=== PATIENT | female | born 1990 | race African-American/Black ===

== ENCOUNTER 2016-11-02 13:52 | Emergency (ER) | payer MEDICAID ==
[~2016-11-02] VITALS: Ht 172.7 cm; Wt 141.4 kg
[~2016-11-02 13:52] MED LIST: BECL8.7A5 IH; LISI-660 PO; LORA10TA7 PO; MOME17N NASAL; OLAN10TA3 PO; OMEP20 PO; OXCA300T PO; TIOT185 IH; TRAZ150 PO
[2016-11-02] MEDS ORDERED: LITH300C3 PO (14:02)
[2016-11-02] MEDS ORDERED: TOPI100 PO (14:02)
[2016-11-02] MEDS ORDERED: ESOM20CA31 PO (14:02)
[2016-11-02] MEDS ORDERED: DIPH25 PO (14:02)
[2016-11-02 14:12] LABS: GLUCOSE,POINT OF CARE 87 MG/DL (70-110)
[2016-11-02] MEDS ORDERED: CefTRIAXone SODIUM 1 GM/VIAL IM ONE (14:45)
[2016-11-02] MEDS ORDERED: LIDOCAINE HCL/PF 1% 2 ML VIAL IM ONE (14:45)
[2016-11-02] MEDS ORDERED: HYDROCODONE/ACETAMINOPHEN 5-325 MG TABLET PO ONE (14:45)
[2016-11-02] MEDS ORDERED: BACITRACIN 0.9 GM PACKET OINTMENT TP ONE (15:00)
[2016-11-02] MEDS ORDERED: POVIDONE-IODINE 10% 15 ML SOLUTION UD TP ONE (15:00)
[2016-11-02 15:23] VITALS: BP 137/82
== END 2016-11-02 16:09 | disposition home or self-care (01) ==
LOC: EMS 13:53
DX: L02.411 Cutaneous abscess of right axilla (principal); L03.111 Cellulitis of right axilla; J06.9 Acute upper respiratory infection, unspecified; J45.909 Unspecified asthma, uncomplicated; Z87.891 Personal history of nicotine dependence
CPT/HCPCS: 36415; 82962; 84484; 93005; 96372; 99285; J0696; J3490

== ENCOUNTER 2016-12-30 08:15 | Emergency (ER) | payer MEDICAID ==
[~2016-12-30] VITALS: Ht 160 cm; Wt 139.0 kg
[~2016-12-30 08:15] MED LIST changes: +DIPH25 PO; +ESOM20CA31 PO; +LITH300C3 PO; +TOPI100 PO
[2016-12-30 08:32] LABS: GLUCOSE,POINT OF CARE 112 MG/DL (70-110)
[2016-12-30] MEDS ORDERED: METF500T4 PO (08:33)
[2016-12-30 09:23] LABS: GLUCOSE, URINE (UA) NEGATIVE (NEGATIVE); KETONES,URINE NEGATIVE (NEGATIVE); LEUKOCYTE ESTERASE ,URINE LARGE (NEGATIVE); OCCULT BLOOD,URINE NEGATIVE (NEGATIVE); PROTEIN,URINE NEGATIVE (NEGATIVE)
[2016-12-30 09:36] LABS: APPEARANCE,URINE HAZY (CLEAR)
[2016-12-30 10:05] LABS: SQUAMOUS EPITHELIAL CELL,UR Few /LPF (None Seen)
[2016-12-30 10:53] VITALS: BP 132/68
== END 2016-12-30 10:55 | disposition home or self-care (01) ==
LOC: EMS 08:16
DX: N39.0 Urinary tract infection, site not specified (principal); B37.3 Candidiasis of vulva and vagina; Z87.891 Personal history of nicotine dependence; F32.9 Major depressive disorder, single episode, unspecified; J45.909 Unspecified asthma, uncomplicated; Z79.899 Other long term (current) drug therapy
CPT/HCPCS: 82962; 87086; 99284

== ENCOUNTER 2017-07-09 13:03 | Emergency (ER) | payer MEDICAID, OTHER ==
[~2017-07-09] VITALS: Ht 162.6 cm; Wt 135.9 kg
[~2017-07-09 13:03] MED LIST changes: +METF500T4 PO; -TOPI100 PO; +TOPI100T37 PO
[2017-07-09] MEDS ORDERED: BENZ-51 PO (13:24)
[2017-07-09] MEDS ORDERED: NORG1TAB53 PO (13:24)
[2017-07-09] MEDS ORDERED: ALBU8.5H8 IH (13:24)
[2017-07-09] MEDS ORDERED: IBUP-2070 PO (13:24)
[2017-07-09] MEDS ORDERED: OXCA300T PO (13:24)
[2017-07-09] MEDS ORDERED: BACL10TA PO (13:24)
[2017-07-09] MEDS ORDERED: OLAN10TA3 PO (13:24)
[2017-07-09] MEDS ORDERED: DICL75TA5 PO (13:24)
[2017-07-09 13:27] LABS: GLUCOSE,POINT OF CARE 84 MG/DL (70-110)
[2017-07-09] MEDS ORDERED: DOXYCYCLINE 100 MG CAPSULE PO ONE (15:00)
[2017-07-09 16:43] VITALS: BP 128/83
== END 2017-07-09 17:33 | disposition home or self-care (01) ==
LOC: EMS 13:06
DX: L73.2 Hidradenitis suppurativa (principal); F31.9 Bipolar disorder, unspecified; J45.909 Unspecified asthma, uncomplicated; F17.210 Nicotine dependence, cigarettes, uncomplicated
CPT/HCPCS: 82962; 99284

== ENCOUNTER 2018-01-12 17:15 | Emergency (ER) | payer OTHER ==
[~2018-01-12] VITALS: Ht 162.6 cm; Wt 130.0 kg
[~2018-01-12 17:15] MED LIST changes: +ALBU8.5H8 IH; +BACL10TA PO; +BENZ-51 PO; +DICL75TA5 PO; -ESOM20CA31 PO; +IBUP-2070 PO; +NORG1TAB53 PO
[2018-01-12 17:32] LABS: GLUCOSE,POINT OF CARE 93 MG/DL (70-110)
[2018-01-12 18:09] LABS: APPEARANCE,URINE CLOUDY (CLEAR); GLUCOSE, URINE (UA) NEGATIVE (NEGATIVE); KETONES,URINE NEGATIVE (NEGATIVE); LEUKOCYTE ESTERASE ,URINE NEGATIVE (NEGATIVE); NITRATE,URINE NEGATIVE (NEGATIVE); OCCULT BLOOD,URINE NEGATIVE (NEGATIVE); PH,URINE 5.5 (5.0-8.0); PROTEIN,URINE NEGATIVE (NEGATIVE); UROBILINOGEN,URINE 0.2 mg/dL (<=1.0)
[2018-01-12 18:13] LABS: BILIRUBIN,URINE PRELIM. POSITIVE (NEGATIVE)
[2018-01-12 18:18] LABS: BACTERIA,URINE Rare /HPF (None Seen); MUCUS,URINE Moderate LPF (None Seen); RBC,URINE None Seen /HPF (0-2); SQUAMOUS EPITHELIAL CELL,UR Many /LPF (None Seen)
[2018-01-12 18:31] LABS: ANION GAP 12 mmol/L (8-16); CARBON DIOXIDE 21 mmol/L (22-29); CHLORIDE 101 mmol/L (98-107); CREATININE 0.83 mg/dL (0.60-1.30); GLUCOSE,RANDOM 128 mg/dL (70-110); POTASSIUM 3.6 mmol/L (3.5-5.1); SODIUM SERUM 134 mmol/L (136-145); UREA NITROGEN, BLOOD 8 mg/dL (7-18)
[2018-01-12 18:32] LABS: CALCIUM, TOTAL 9.1 mg/dL (8.8-10.5); GLOMERULAR FILTR. RATE CALC > 60 mL/min (>60)
[2018-01-12 18:38] LABS: ALANINE AMINOTRANSFERASE 33 U/L (12-78); ALBUMIN 3.4 g/dL (3.4-5.0); ALKALINE PHOSPHATASE 40 U/L (46-116); ASPARTATE AMINOTRANSFERASE 37 U/L (15-37); BILIRUBIN,TOTAL 0.3 mg/dL (0.1-1.0); LIPASE 60 U/L (73-393); TOTAL PROTEIN, SERUM 7.6 g/dL (6.4-8.2)
[2018-01-12] MEDS ORDERED: PB/HYOSCY/ATR/SCOP/LIDO/MAALOX 55 ML BOTTLE PO ONE (19:30)
[2018-01-12 19:43] LABS: BASOPHILS % (AUTO) 0.1 % (0.0-2.0); EOSINOPHILS % (AUTO) 0 % (1.0-6.0); HEMATOCRIT 39.2 % (36-46); HEMOGLOBIN 12.8 g/dL (12.0-16.0); LYMPHOCYTES # (AUTO) 0.8 K/uL (1.0-4.8); LYMPHOCYTES % (AUTO) 11.5 % (22.0-44.0); MEAN CORPUSCULAR HEMOGLOBIN 25.6 pg (26.0-34.0); MEAN CORPUSCULAR HGB CONC 32.5 G/dL (31.0-37.0); MEAN CORPUSCULAR VOLUME 79 fL (80-100); MONOCYTES # (AUTO) 0.4 K/uL (0.1-1.0); MONOCYTES % (AUTO) 5.2 % (2.0-9.0); NEUTROPHILS # (AUTO) 5.6 K/uL (1.8-7.7); NEUTROPHILS % (AUTO) 83.2 % (40.0-70.0); PLATELET COUNT (AUTO) 243 K/uL (150-450); RED BLOOD CELL COUNT(AUTO) 4.98 MIL/uL (4.00-5.20); RED CELL DISTRIBUTION WIDTH 14.9 % (11.5-14.5)
[2018-01-12] MEDS ORDERED: KETOROLAC TROMETHAMINE 60 MG/2 ML VIAL IM ONE (20:30)
[2018-01-12 22:36] VITALS: BP 123/69
== END 2018-01-12 22:53 | disposition home or self-care (01) ==
LOC: EMS 17:16
DX: R10.13 Epigastric pain (principal); R11.0 Nausea; F17.210 Nicotine dependence, cigarettes, uncomplicated; J45.909 Unspecified asthma, uncomplicated; F31.9 Bipolar disorder, unspecified; Z71.6 Tobacco abuse counseling
CPT/HCPCS: 36415; 74022; 80053; 80178; 81001; 82962; 83690; 84703; 85025; 96372; 99285; 99406; J1885; Z7610

== ENCOUNTER 2018-03-03 07:14 | Emergency (ER) | payer OTHER ==
[~2018-03-03] VITALS: Ht 162.6 cm; Wt 127.0 kg
[~2018-03-03 07:14] MED LIST changes: -METF500T4 PO; +METF500T6 PO
[2018-03-03 07:28] LABS: GLUCOSE,POINT OF CARE 111 MG/DL (70-110)
[2018-03-03 08:47] VITALS: BP 134/88
== END 2018-03-03 08:55 | disposition home or self-care (01) ==
LOC: EMS 07:16
DX: N91.2 Amenorrhea, unspecified (principal); F17.210 Nicotine dependence, cigarettes, uncomplicated; F31.9 Bipolar disorder, unspecified; J45.909 Unspecified asthma, uncomplicated; Z79.899 Other long term (current) drug therapy
CPT/HCPCS: 99283; 99406

== ENCOUNTER 2018-03-08 08:50 | Inpatient (IN) | payer MEDICAID, OTHER ==
[~2018-03-08] VITALS: Ht 162.6 cm; Wt 129.0 kg
[~2018-03-08 08:50] MED LIST changes: -BACL10TA PO; -BECL8.7A5 IH; -BENZ-51 PO; -DICL75TA5 PO; -DIPH25 PO; -IBUP-2070 PO; -LISI-660 PO; -LITH300C3 PO; -LORA10TA7 PO; -MOME17N NASAL; -NORG1TAB53 PO; -OLAN10TA3 PO; -OMEP20 PO; -OXCA300T PO; -TIOT185 IH; -TOPI100T37 PO; -TRAZ150 PO
[2018-03-08 10:17] LABS: EOSINOPHILS % (AUTO) 0 % (1.0-6.0); MEAN CORPUSCULAR HGB CONC 32.3 G/dL (31.0-37.0); MONOCYTES # (AUTO) 0.3 K/uL (0.1-1.0); NEUTROPHILS # (AUTO) 2.6 K/uL (1.8-7.7)
[2018-03-08 10:26] LABS: BASOPHILS % (AUTO) 0.3 % (0.0-2.0); HEMATOCRIT 39.3 % (36-46); HEMOGLOBIN 12.7 g/dL (12.0-16.0); LYMPHOCYTES # (AUTO) 2.7 K/uL (1.0-4.8); LYMPHOCYTES % (AUTO) 47.8 % (22.0-44.0); MEAN CORPUSCULAR HEMOGLOBIN 25.7 pg (26.0-34.0); MEAN CORPUSCULAR VOLUME 80 fL (80-100); MONOCYTES % (AUTO) 5.3 % (2.0-9.0); NEUTROPHILS % (AUTO) 46.6 % (40.0-70.0); PLATELET COUNT (AUTO) 310 K/uL (150-450); RED BLOOD CELL COUNT(AUTO) 4.94 MIL/uL (4.00-5.20); RED CELL DISTRIBUTION WIDTH 15.1 % (11.5-14.5)
[2018-03-08 10:27] LABS: AMPHET/METH SCREEN,URINE NEGATIVE (NEGATIVE); BARBITURATE SCREEN, URINE NEGATIVE (NEGATIVE); BENZODIAZEPINES SCREEN,URINE NEGATIVE (NEGATIVE); CANNABINOID SCREEN,URINE POSITIVE (NEGATIVE); COCAINE SCREEN,URINE NEGATIVE (NEGATIVE); METHADONE SCREEN, URINE NEGATIVE (NEGATIVE); OPIATE SCREEN,URINE NEGATIVE (NEGATIVE)
[2018-03-08 10:28] LABS: PHENCYCLIDINE SCREEN,URINE NEGATIVE (NEGATIVE)
[2018-03-08 10:32] LABS: ANION GAP 10 mmol/L (8-16); CALCIUM, TOTAL 8.6 mg/dL (8.8-10.5); CARBON DIOXIDE 20 mmol/L (22-29); CHLORIDE 105 mmol/L (98-107); CREATININE 0.72 mg/dL (0.60-1.30); GLOMERULAR FILTR. RATE CALC > 60 mL/min (>60); GLUCOSE,RANDOM 105 mg/dL (70-110); POTASSIUM 3.6 mmol/L (3.5-5.1); SODIUM SERUM 135 mmol/L (136-145); UREA NITROGEN, BLOOD 7 mg/dL (7-18)
[2018-03-08 10:41] LABS: ALANINE AMINOTRANSFERASE 47 U/L (12-78); ALBUMIN 3.4 g/dL (3.4-5.0); ALKALINE PHOSPHATASE 47 U/L (46-116); ASPARTATE AMINOTRANSFERASE 34 U/L (15-37); BILIRUBIN,TOTAL 0.3 mg/dL (0.1-1.0); TOTAL PROTEIN, SERUM 7.3 g/dL (6.4-8.2)
[2018-03-08] MEDS ORDERED: TUBERCULIN, PURIFIED PROTEIN DERIVATIVE 5 TU/0.1 ML SYG ID ONE ×2 (11:15→19:45)
[2018-03-08] MEDS ORDERED: PROMETHAZINE HCL 25 MG TABLET PO PRN (11:15)
[2018-03-08] MEDS ORDERED: ZOLPIDEM TARTRATE 10 MG TABLET PO PRN (11:15)
[2018-03-08] MEDS ORDERED: ACETAMINOPHEN 325 MG TABLET PO PRN (11:15)
[2018-03-08] MEDS ORDERED: MAGNESIUM HYDROXIDE SUSPENSION 30 ML UDCUP PO PRN (11:15)
[2018-03-08] MEDS ORDERED: GuaiFENesin/D-METHORPHAN [SUGAR-FREE] 200-20MG/10 ML SYRUP UDCUP PO PRN (11:15)
[2018-03-08] MEDS ORDERED: OLANZapine 5 MG RAPDIS TABLET PO PRN (11:15)
[2018-03-08] MEDS ORDERED: MAG HYDROX/AL HYDROX/SIMETH ES 30 ML SUSPENSION UDCUP PO PRN (11:15)
[2018-03-08] MEDS ORDERED: HydrOXYzine PAMOATE 50 MG CAPSULE PO PRN (11:15)
[2018-03-08] MEDS ORDERED: LOPERAMIDE HCL 2 MG CAPSULE PO PRN (11:15)
[2018-03-08] MEDS ORDERED: IBUPROFEN 800 MG TABLET PO ONE (11:30)
[2018-03-08] MEDS ORDERED: MUPIROCIN CALCIUM 2% 15 GM CREAM TP ONE (11:30)
[2018-03-08 13:06] LABS: HCG,QUANTITATIVE < 1 mIU/mL (0-6)
[2018-03-08 15:05] LABS: GLUCOSE,POINT OF CARE 126 MG/DL (70-110)
[2018-03-08] MEDS ORDERED: INSULIN LISPRO 100 UNITS/ML SQ PRN (15:45)
[2018-03-08] MEDS ORDERED: DEXTROSE 50%-WATER 25 GM/50 ML SYRINGE IVP PRN (15:45)
[2018-03-08] MEDS: LORazepam 2 MG TABLET PO PRN (16:44)
[2018-03-08] MEDS: THIAMINE HCL 100 MG TABLET PO SCH (18:12)
[2018-03-08] MEDS: MetFORMIN HCL 500 MG TABLET PO SCH (18:12)
[2018-03-08 19:17] VITALS: BP 141/92
[2018-03-08 19:29] LABS: GLUCOMETER DEV NAME(LOC) BV3S 2; GLUCOSE,POINT OF CARE 115 MG/DL (70-110)
[2018-03-08] MEDS ORDERED: LITHIUM CARBONATE 600 MG CAPSULE PO SCH (21:00)
[2018-03-08] MEDS ORDERED: DIVALPROEX SODIUM 500 MG ER TABLET PO SCH (21:00)
[2018-03-08] MEDS ORDERED: TraZODone HCL 50 MG TABLET PO SCH (21:00)
[2018-03-08] MEDS ORDERED: OLANZapine 5 MG RAPDIS TABLET PO SCH (21:00)
[2018-03-08 21:25] LABS: GLUCOMETER DEV NAME(LOC) BV3S 2; GLUCOSE,POINT OF CARE 121 MG/DL (70-110)
[2018-03-08] MEDS: NICOTINE 7 MG/24 HOUR PATCH TD SCH (22:18)
[2018-03-09] MEDS ORDERED: INSULIN LISPRO 100 UNITS/ML SQ PRN (05:00)
[2018-03-09] MEDS ORDERED: GLUCAGON,HUMAN RECOMBINANT 1 MG VIAL IM PRN (05:00)
[2018-03-09] MEDS: MetFORMIN HCL 500 MG TABLET PO SCH ×2 (06:42→17:05)
[2018-03-09 07:14] LABS: GLUCOMETER DEV NAME(LOC) BV3S 2; GLUCOSE,POINT OF CARE 96 MG/DL (70-110)
[2018-03-09 07:15] VITALS: BP 140/90
[2018-03-09 08:34] LABS: BASOPHILS % (AUTO) 0.2 % (0.0-2.0); EOSINOPHILS % (AUTO) 0 % (1.0-6.0); HEMATOCRIT 40.9 % (36-46); HEMOGLOBIN 13.3 g/dL (12.0-16.0); LYMPHOCYTES # (AUTO) 3.4 K/uL (1.0-4.8); LYMPHOCYTES % (AUTO) 51.1 % (22.0-44.0); MEAN CORPUSCULAR HEMOGLOBIN 25.9 pg (26.0-34.0); MEAN CORPUSCULAR HGB CONC 32.4 G/dL (31.0-37.0); MEAN CORPUSCULAR VOLUME 80 fL (80-100); MONOCYTES # (AUTO) 0.4 K/uL (0.1-1.0); MONOCYTES % (AUTO) 5.4 % (2.0-9.0); NEUTROPHILS # (AUTO) 2.8 K/uL (1.8-7.7); NEUTROPHILS % (AUTO) 43.3 % (40.0-70.0); PLATELET COUNT (AUTO) 288 K/uL (150-450); RED BLOOD CELL COUNT(AUTO) 5.11 MIL/uL (4.00-5.20); RED CELL DISTRIBUTION WIDTH 14.9 % (11.5-14.5)
[2018-03-09 08:38] LABS: HEMOGLOBIN A1C 5.9 % (4.5-6.2)
[2018-03-09] MEDS: FOLIC ACID 1 MG TABLET PO SCH (08:55)
[2018-03-09] MEDS: NICOTINE 7 MG/24 HOUR PATCH TD SCH (08:55)
[2018-03-09] MEDS: MULTIVITAMINS WITH MINERALS, THERAPEUTIC TABLET PO SCH (08:55)
[2018-03-09] MEDS: THIAMINE HCL 100 MG TABLET PO SCH ×2 (08:55→17:05)
[2018-03-09 08:59] LABS: LITHIUM 0.81 mmol/L (0.60-1.20)
[2018-03-09] MEDS ORDERED: FLUoxetine HCL 20 MG CAPSULE PO SCH (09:00)
[2018-03-09 09:01] LABS: ALANINE AMINOTRANSFERASE 41 U/L (12-78); ALBUMIN 3.3 g/dL (3.4-5.0); ALKALINE PHOSPHATASE 45 U/L (46-116); ANION GAP 10 mmol/L (8-16); ASPARTATE AMINOTRANSFERASE 25 U/L (15-37); BILIRUBIN,TOTAL 0.3 mg/dL (0.1-1.0); CARBON DIOXIDE 23 mmol/L (22-29); CHLORIDE 107 mmol/L (98-107); CHOL/HDL RATIO 2.3 (3.9-5.7); CHOLESTEROL 138 mg/dL (131-200); CREATININE 0.79 mg/dL (0.60-1.30); FREE T4 (FREE THYROXINE) 0.85 ng/dL (0.76-1.46); GLOMERULAR FILTR. RATE CALC > 60 mL/min (>60); GLUCOSE,RANDOM 91 mg/dL (70-110); HDL CHOLESTEROL 61 mg/dL (40-60); LDL CHOL (CALC.) 58 mg/dL (0-130); POTASSIUM 3.8 mmol/L (3.5-5.1); SODIUM SERUM 140 mmol/L (136-145); THYROID STIMULATING HORMONE 1.23 uIU/mL (0.36-3.74); TOTAL PROTEIN, SERUM 7.5 g/dL (6.4-8.2); TRIGLYCERIDES 93 mg/dL (15-150); UREA NITROGEN, BLOOD 6 mg/dL (7-18)
[2018-03-09 09:13] VITALS: BP 146/93
[2018-03-09 12:13] LABS: GLUCOMETER DEV NAME(LOC) BV3S 2; GLUCOSE,POINT OF CARE 112 MG/DL (70-110)
[2018-03-09] MEDS ORDERED: TUBERCULIN, PURIFIED PROTEIN DERIVATIVE 5 TU/0.1 ML SYG ID ONE (14:45)
[2018-03-09 16:37] VITALS: BP 125/74
[2018-03-09 16:54] LABS: GLUCOMETER DEV NAME(LOC) BV3S 2; GLUCOSE,POINT OF CARE 86 MG/DL (70-110)
[2018-03-09] MEDS: CEPHALEXIN MONOHYDRATE 500 MG CAPSULE PO SCH ×2 (17:05→20:49)
[2018-03-09] MEDS: LORazepam 2 MG TABLET PO PRN (17:06)
[2018-03-09] MEDS: LITHIUM CARBONATE 300 MG CAPSULE PO SCH (17:22)
[2018-03-09] MEDS: OXcarbazepine 300 MG TABLET PO SCH (17:22)
[2018-03-09] MEDS: OLANZapine 10 MG RAPDIS TABLET PO SCH (20:49)
[2018-03-09] MEDS ORDERED: TraZODone HCL 150 MG TABLET PO SCH (21:00)
[2018-03-09] MEDS: TraZODone HCL 100 MG TABLET PO SCH ×2 (21:30→21:52)
[2018-03-10] MEDS: MetFORMIN HCL 500 MG TABLET PO SCH ×2 (06:53→16:35)
[2018-03-10 07:07] VITALS: BP 135/72
[2018-03-10 07:29] LABS: GLUCOMETER DEV NAME(LOC) BV3S 2; GLUCOSE,POINT OF CARE 150 MG/DL (70-110)
[2018-03-10 08:36] VITALS: BP 111/60
[2018-03-10] MEDS: NICOTINE 7 MG/24 HOUR PATCH TD SCH (09:41)
[2018-03-10] MEDS: LITHIUM CARBONATE 300 MG CAPSULE PO SCH ×3 (09:41→16:35)
[2018-03-10] MEDS: THIAMINE HCL 100 MG TABLET PO SCH ×2 (09:41→16:35)
[2018-03-10] MEDS: CEPHALEXIN MONOHYDRATE 500 MG CAPSULE PO SCH ×4 (09:41→20:03)
[2018-03-10] MEDS: MULTIVITAMINS WITH MINERALS, THERAPEUTIC TABLET PO SCH (09:41)
[2018-03-10] MEDS: OXcarbazepine 300 MG TABLET PO SCH ×2 (09:41→16:35)
[2018-03-10] MEDS: FOLIC ACID 1 MG TABLET PO SCH (09:41)
[2018-03-10] MEDS: LORazepam 2 MG TABLET PO PRN ×2 (13:09→20:20)
[2018-03-10] MEDS ORDERED: OLAN10TA22 PO (15:52)
[2018-03-10] MEDS ORDERED: LITH300C3 PO (15:52)
[2018-03-10] MEDS ORDERED: TRAZ150 PO (15:52)
[2018-03-10] MEDS ORDERED: OXCA300T PO (15:52)
[2018-03-10 16:17] VITALS: BP 137/71
[2018-03-10 17:19] LABS: GLUCOMETER DEV NAME(LOC) BV3S 2; GLUCOSE,POINT OF CARE 90 MG/DL (70-110)
[2018-03-10] MEDS: OLANZapine 10 MG RAPDIS TABLET PO SCH (20:03)
[2018-03-10] MEDS ORDERED: TraZODone HCL 150 MG TABLET PO SCH (21:00)
[2018-03-11 04:04] VITALS: BP 134/82
[2018-03-11] MEDS: MetFORMIN HCL 500 MG TABLET PO SCH (06:54)
[2018-03-11 06:59] LABS: GLUCOMETER DEV NAME(LOC) BV3S 2; GLUCOSE,POINT OF CARE 100 MG/DL (70-110)
[2018-03-11 08:31] VITALS: BP 121/70
[2018-03-11] MEDS: MULTIVITAMINS WITH MINERALS, THERAPEUTIC TABLET PO SCH (08:38)
[2018-03-11] MEDS: CEPHALEXIN MONOHYDRATE 500 MG CAPSULE PO SCH ×2 (08:38→12:18)
[2018-03-11] MEDS: OXcarbazepine 300 MG TABLET PO SCH (08:38)
[2018-03-11] MEDS: THIAMINE HCL 100 MG TABLET PO SCH (08:38)
[2018-03-11] MEDS: FOLIC ACID 1 MG TABLET PO SCH (08:38)
[2018-03-11] MEDS: LITHIUM CARBONATE 300 MG CAPSULE PO SCH ×2 (08:38→12:18)
[2018-03-11] MEDS: NICOTINE 7 MG/24 HOUR PATCH TD SCH (08:39)
[2018-03-11] MEDS ORDERED: CEPH-582 PO (11:28)
== END 2018-03-11 15:19 | DRG 750 ==
LOC: EMS 08:53 → UNDOADMIN 16:34 → B3A 16:34
PROVIDERS: ADMIT Psychiatry & Neurology Psychiatry; ATTEND Psychiatry & Neurology Psychiatry
DX: F25.9 Schizoaffective disorder, unspecified (principal); Z68.42 Body mass index [BMI] 45.0-49.9, adult; E11.9 Type 2 diabetes mellitus without complications; L03.112 Cellulitis of left axilla; F31.9 Bipolar disorder, unspecified; F17.210 Nicotine dependence, cigarettes, uncomplicated; F91.3 Oppositional defiant disorder; S61.519A Laceration without foreign body of unspecified wrist, initial encounter; F70 Mild intellectual disabilities; E66.01 Morbid (severe) obesity due to excess calories; X58.XXXA Exposure to other specified factors, initial encounter; J45.909 Unspecified asthma, uncomplicated; Z83.3 Family history of diabetes mellitus; Z91.14 Patient's other noncompliance with medication regimen; Y93.89 Activity, other specified; Y92.89 Other specified places as the place of occurrence of the external cause; Y99.8 Other external cause status; Z79.899 Other long term (current) drug therapy; Z80.3 Family history of malignant neoplasm of breast; Z81.1 Family history of alcohol abuse and dependence
CPT/HCPCS: 80074; 83036; 84439; 84443; 86592; 99285

== ENCOUNTER 2019-08-12 18:12 | Emergency (ER) | payer MEDICAID, OTHER ==
[~2019-08-12] VITALS: Ht 160 cm; Wt 115.5 kg
[~2019-08-12 18:12] MED LIST changes: -ALBU8.5H8 IH; +CEPH-582 PO; +LITH300C3 PO; +METF-960 PO; -METF500T6 PO; +OLAN10TA22 PO; +OXCA300T28 PO; +TRAZ150 PO
[2019-08-12 19:03] LABS: GLUCOSE,POINT OF CARE 96 MG/DL (70-110)
[2019-08-12] MEDS ORDERED: TRAZ-220 PO (19:03)
[2019-08-12] MEDS ORDERED: TOPI100T37 PO (19:03)
[2019-08-12] MEDS ORDERED: ATOR20TA86 PO (19:04)
[2019-08-12] MEDS ORDERED: BACL10TA PO (19:04)
[2019-08-12] MEDS ORDERED: DIPH50 PO (19:04)
[2019-08-12] MEDS ORDERED: SPIR25 PO (19:04)
[2019-08-12] MEDS ORDERED: OMEP20 PO (19:04)
[2019-08-12] MEDS ORDERED: LORA10TA7 PO (19:04)
[2019-08-12 19:19] LABS: BASOPHILS % (AUTO) 0.1 % (0.0-2.0); EOSINOPHILS % (AUTO) 0.1 % (1.0-6.0); HEMATOCRIT 38.6 % (36-46); HEMOGLOBIN 12.6 g/dL (12.0-16.0); LYMPHOCYTES # (AUTO) 2.4 K/uL (1.0-4.8); LYMPHOCYTES % (AUTO) 33.1 % (22.0-44.0); MEAN CORPUSCULAR HGB CONC 32.7 G/dL (31.0-37.0); MEAN CORPUSCULAR VOLUME 83 fL (80-100); MONOCYTES # (AUTO) 0.4 K/uL (0.1-1.0); MONOCYTES % (AUTO) 5.8 % (2.0-9.0); NEUTROPHILS # (AUTO) 4.5 K/uL (1.8-7.7); NEUTROPHILS % (AUTO) 60.9 % (40.0-70.0); PLATELET COUNT (AUTO) 292 K/uL (150-450); RED BLOOD CELL COUNT(AUTO) 4.67 MIL/uL (4.00-5.20); RED CELL DISTRIBUTION WIDTH 14.4 % (11.5-14.5)
[2019-08-12 19:40] LABS: ANION GAP 7 mmol/L (8-16); CALCIUM, TOTAL 8.4 mg/dL (8.8-10.5); CARBON DIOXIDE 26 mmol/L (22-29); CHLORIDE 106 mmol/L (98-107); CREATININE 0.62 mg/dL (0.60-1.30); GLOMERULAR FILTR. RATE CALC > 60 mL/min (>60); GLUCOSE,RANDOM 109 mg/dL (70-110); SODIUM SERUM 139 mmol/L (136-145); UREA NITROGEN, BLOOD 7 mg/dL (7-18)
[2019-08-12 19:42] LABS: B-TYPE NATRIURETIC PEPTIDE 37 pg/mL (0-100)
[2019-08-12] MEDS ORDERED: ONDANSETRON HCL 4 MG/2 ML VIAL IVP ONE (19:45)
[2019-08-12 20:05] LABS: ALANINE AMINOTRANSFERASE 30 U/L (12-78); ALBUMIN 3.4 g/dL (3.4-5.0); ALKALINE PHOSPHATASE 44 U/L (46-116); ASPARTATE AMINOTRANSFERASE 15 U/L (15-37); BILIRUBIN,TOTAL 0.1 mg/dL (0.1-1.0); CREATINE KINASE, TOTAL ONLY 189 U/L (26-192); LIPASE 107 U/L (73-393); TOTAL PROTEIN, SERUM 7.1 g/dL (6.4-8.2)
[2019-08-12] MEDS ORDERED: KETOROLAC TROMETHAMINE 30 MG/ML VIAL IVP ONE (20:15)
[2019-08-12 21:22] VITALS: BP 123/75
== END 2019-08-12 21:41 | disposition home or self-care (01) ==
LOC: EMS 18:13
DX: R10.84 Generalized abdominal pain (principal); R11.2 Nausea with vomiting, unspecified; E78.00 Pure hypercholesterolemia, unspecified; E11.9 Type 2 diabetes mellitus without complications; I10 Essential (primary) hypertension; J45.909 Unspecified asthma, uncomplicated; F31.9 Bipolar disorder, unspecified; F17.210 Nicotine dependence, cigarettes, uncomplicated; F91.3 Oppositional defiant disorder; Z79.899 Other long term (current) drug therapy
CPT/HCPCS: 36415; 80053; 82550; 82962; 83690; 83880; 84484; 85025; 93005; 96374; 99285; J1885; J2405

== ENCOUNTER 2020-01-27 19:09 | Inpatient (IN) | payer MEDICAID, OTHER ==
[~2020-01-27] VITALS: Ht 162.6 cm; Wt 112.5 kg
[~2020-01-27 19:09] MED LIST changes: +ATOR20TA86 PO; +BACL10TA PO; -CEPH-582 PO; +DIPH50 PO; +LORA10TA7 PO; +OMEP20 PO; +SPIR25 PO; +TOPI100T37 PO; +TRAZ-257 PO; -TRAZ150 PO
[2020-01-27 21:20] LABS: AMPHET/METH SCREEN,URINE POSITIVE (NEGATIVE); BARBITURATE SCREEN, URINE NEGATIVE (NEGATIVE); BENZODIAZEPINES SCREEN,URINE NEGATIVE (NEGATIVE); COCAINE SCREEN,URINE NEGATIVE (NEGATIVE); METHADONE SCREEN, URINE NEGATIVE (NEGATIVE); OPIATE SCREEN,URINE NEGATIVE (NEGATIVE)
[2020-01-27 21:30] LABS: CANNABINOID SCREEN,URINE POSITIVE (NEGATIVE)
[2020-01-27 21:31] LABS: PHENCYCLIDINE SCREEN,URINE NEGATIVE (NEGATIVE)
[2020-01-27 21:33] LABS: GLUCOSE,POINT OF CARE 97 MG/DL (70-110)
[2020-01-27 22:29] LABS: EOSINOPHILS % (AUTO) 0 % (1.0-6.0); HEMOGLOBIN 13.6 g/dL (12.0-16.0); MONOCYTES # (AUTO) 0.5 K/uL (0.1-1.0)
[2020-01-27 22:33] LABS: BASOPHILS % (AUTO) 0.3 % (0.0-2.0); HEMATOCRIT 43.7 % (36-46); LYMPHOCYTES # (AUTO) 3.1 K/uL (1.0-4.8); LYMPHOCYTES % (AUTO) 42.9 % (22.0-44.0); MEAN CORPUSCULAR HEMOGLOBIN 24.7 pg (26.0-34.0); MEAN CORPUSCULAR HGB CONC 31.2 G/dL (31.0-37.0); MEAN CORPUSCULAR VOLUME 79 fL (80-100); MONOCYTES % (AUTO) 6.5 % (2.0-9.0); NEUTROPHILS # (AUTO) 3.6 K/uL (1.8-7.7); NEUTROPHILS % (AUTO) 50.3 % (40.0-70.0); PLATELET COUNT (AUTO) 299 K/uL (150-450); RED BLOOD CELL COUNT(AUTO) 5.51 MIL/uL (4.00-5.20); RED CELL DISTRIBUTION WIDTH 15.7 % (11.5-14.5)
[2020-01-27 23:03] LABS: PLATELET MORPHOLOGY COMMENT LARGE PLTS PRESENT
[2020-01-27 23:19] LABS: LITHIUM < 0.20 mmol/L (0.60-1.20)
[2020-01-27 23:22] LABS: ALKALINE PHOSPHATASE 56 U/L (46-116); ASPARTATE AMINOTRANSFERASE 14 U/L (15-37); BILIRUBIN,TOTAL 0.2 mg/dL (0.1-1.0); CALCIUM, TOTAL 9.7 mg/dL (8.8-10.5); GLOMERULAR FILTR. RATE CALC > 60 mL/min (>60); GLUCOSE,RANDOM 116 mg/dL (70-110); UREA NITROGEN, BLOOD 12 mg/dL (7-18)
[2020-01-27 23:23] LABS: HCG,QUANTITATIVE < 1 mIU/mL (0-6)
[2020-01-27 23:43] LABS: ALANINE AMINOTRANSFERASE 27 U/L (12-78); ALBUMIN 3.7 g/dL (3.4-5.0); ANION GAP 11 mmol/L (8-16); CARBON DIOXIDE 25 mmol/L (22-29); CHLORIDE 104 mmol/L (98-107); POTASSIUM 4.3 mmol/L (3.5-5.1); SODIUM SERUM 140 mmol/L (136-145)
[2020-01-28] MEDS ORDERED: LORazepam 2 MG TABLET PO PRN (01:45)
[2020-01-28] MEDS ORDERED: HALOPERIDOL 5 MG TABLET PO PRN (01:45)
[2020-01-28] MEDS ORDERED: ZOLPIDEM TARTRATE 10 MG TABLET PO PRN (01:45)
[2020-01-28 03:00] VITALS: BP 119/79
[2020-01-28] MEDS ORDERED: PNEUMOCOCCAL VACCINE POLYVALENT 0.5 ML VIAL [PPSV23] IM ONE (03:30)
[2020-01-28 05:53] LABS: APPEARANCE,URINE TURBID (CLEAR); BILIRUBIN,URINE NEGATIVE (NEGATIVE); GLUCOSE, URINE (UA) NEGATIVE (NEGATIVE); KETONES,URINE NEGATIVE (NEGATIVE); LEUKOCYTE ESTERASE ,URINE NEGATIVE (NEGATIVE); NITRATE,URINE NEGATIVE (NEGATIVE); OCCULT BLOOD,URINE NEGATIVE (NEGATIVE); PROTEIN,URINE TRACE (NEGATIVE); UROBILINOGEN,URINE 0.2 mg/dL (<=1.0)
[2020-01-28] MEDS ORDERED: GuaiFENesin/D-METHORPHAN [SUGAR-FREE] 200-20MG/10 ML SYRUP UDCUP PO PRN (07:45)
[2020-01-28] MEDS ORDERED: ONDANSETRON HCL 4 MG TABLET PO PRN (07:45)
[2020-01-28] MEDS ORDERED: ALBUTEROL SULFATE HFA 90 MCG/PUFF 8 GM INHALER IH PRN (07:45)
[2020-01-28] MEDS ORDERED: ACETAMINOPHEN 325 MG TABLET PO PRN (07:45)
[2020-01-28] MEDS ORDERED: MAGNESIUM HYDROXIDE SUSPENSION 30 ML UDCUP PO PRN (07:45)
[2020-01-28] MEDS ORDERED: LOPERAMIDE HCL 2 MG CAPSULE PO PRN (07:45)
[2020-01-28] MEDS ORDERED: CloNIDine HCL 0.1 MG TABLET PO PRN (07:45)
[2020-01-28] MEDS ORDERED: IBUPROFEN 400 MG TABLET PO PRN (07:45)
[2020-01-28] MEDS ORDERED: PETROLATUM,WHITE 28 GM JELLY TP PRN (07:45)
[2020-01-28] MEDS ORDERED: MAG HYDROX/AL HYDROX/SIMETH ES 30 ML SUSPENSION UDCUP PO PRN (07:45)
[2020-01-28] MEDS ORDERED: DOCUSATE SODIUM 100 MG CAPSULE PO PRN (07:45)
[2020-01-28] MEDS: SPIRONOLACTONE 25 MG TABLET PO SCH (09:51)
[2020-01-28] MEDS: ATORVASTATIN CALCIUM 20 MG TABLET PO SCH (09:51)
[2020-01-28] MEDS: TOPIRAMATE 100 MG TABLET PO SCH (09:51)
[2020-01-28] MEDS: OMEPRAZOLE 20 MG CAPSULE PO SCH (09:51)
[2020-01-28] MEDS: BACLOFEN 10 MG TABLET PO SCH (09:52)
[2020-01-28] MEDS: MetFORMIN HCL 500 MG TABLET PO SCH ×2 (09:53→16:37)
[2020-01-28] MEDS: OXcarbazepine 300 MG TABLET PO SCH ×2 (09:55→16:04)
[2020-01-28 11:29] VITALS: BP 131/69
[2020-01-28] MEDS: NICOTINE 14 MG/24 HOUR PATCH TD PRN (12:50)
[2020-01-28] MEDS ORDERED: CALAMINE/ZINC OXIDE 177 ML LOTION TP PRN (14:45)
[2020-01-28] MEDS: LITHIUM CARBONATE 300 MG CAPSULE PO SCH (16:04)
[2020-01-28 18:45] VITALS: BP 133/74
[2020-01-28] MEDS: TraZODone HCL 100 MG TABLET PO SCH (20:44)
[2020-01-28] MEDS: OLANZapine 10 MG RAPDIS TABLET PO SCH (20:44)
[2020-01-29] MEDS: MetFORMIN HCL 500 MG TABLET PO SCH ×2 (06:36→16:45)
[2020-01-29 08:11] LABS: CHOL/HDL RATIO 4.3 (3.9-5.7)
[2020-01-29 09:31] VITALS: BP 131/105
[2020-01-29] MEDS: BACLOFEN 10 MG TABLET PO SCH (09:46)
[2020-01-29] MEDS: TOPIRAMATE 100 MG TABLET PO SCH (09:46)
[2020-01-29] MEDS: ATORVASTATIN CALCIUM 20 MG TABLET PO SCH (09:46)
[2020-01-29] MEDS: SPIRONOLACTONE 25 MG TABLET PO SCH (09:46)
[2020-01-29] MEDS: LITHIUM CARBONATE 300 MG CAPSULE PO SCH ×3 (09:46→16:45)
[2020-01-29] MEDS: OXcarbazepine 300 MG TABLET PO SCH ×2 (09:46→16:45)
[2020-01-29] MEDS: OMEPRAZOLE 20 MG CAPSULE PO SCH (09:46)
[2020-01-29 17:14] VITALS: BP 117/77
[2020-01-29] MEDS: OLANZapine 10 MG RAPDIS TABLET PO SCH (20:24)
[2020-01-29] MEDS: TraZODone HCL 100 MG TABLET PO SCH (20:24)
[2020-01-30] MEDS: MetFORMIN HCL 500 MG TABLET PO SCH ×2 (06:47→16:33)
[2020-01-30] MEDS: ATORVASTATIN CALCIUM 20 MG TABLET PO SCH (09:01)
[2020-01-30] MEDS: LITHIUM CARBONATE 300 MG CAPSULE PO SCH ×3 (09:01→16:33)
[2020-01-30] MEDS: OXcarbazepine 300 MG TABLET PO SCH ×2 (09:01→16:33)
[2020-01-30] MEDS: OMEPRAZOLE 20 MG CAPSULE PO SCH (09:01)
[2020-01-30] MEDS: BACLOFEN 10 MG TABLET PO SCH (09:02)
[2020-01-30] MEDS: SPIRONOLACTONE 25 MG TABLET PO SCH (09:02)
[2020-01-30] MEDS: TOPIRAMATE 100 MG TABLET PO SCH (09:02)
[2020-01-30 09:16] VITALS: BP 137/96
[2020-01-30 19:10] VITALS: BP 117/66
[2020-01-30] MEDS: OLANZapine 10 MG RAPDIS TABLET PO SCH (20:19)
[2020-01-30] MEDS: TraZODone HCL 100 MG TABLET PO SCH (20:19)
[2020-01-31] MEDS: MetFORMIN HCL 500 MG TABLET PO SCH ×2 (06:48→16:47)
[2020-01-31 08:30] VITALS: BP 119/71
[2020-01-31] MEDS: ATORVASTATIN CALCIUM 20 MG TABLET PO SCH (08:52)
[2020-01-31] MEDS: SPIRONOLACTONE 25 MG TABLET PO SCH (08:52)
[2020-01-31] MEDS: OXcarbazepine 300 MG TABLET PO SCH ×2 (08:52→16:47)
[2020-01-31] MEDS: OMEPRAZOLE 20 MG CAPSULE PO SCH (08:52)
[2020-01-31] MEDS: LITHIUM CARBONATE 300 MG CAPSULE PO SCH ×3 (08:52→16:47)
[2020-01-31] MEDS: BACLOFEN 10 MG TABLET PO SCH (08:53)
[2020-01-31] MEDS: TOPIRAMATE 100 MG TABLET PO SCH (08:53)
[2020-01-31] MEDS: NICOTINE 14 MG/24 HOUR PATCH TD PRN (12:26)
[2020-01-31] MEDS: OLANZapine 10 MG RAPDIS TABLET PO SCH (20:50)
[2020-01-31] MEDS: TraZODone HCL 100 MG TABLET PO SCH (20:50)
[2020-01-31 20:56] VITALS: BP 112/66
[2020-02-01] MEDS: MetFORMIN HCL 500 MG TABLET PO SCH ×2 (06:53→16:34)
[2020-02-01] MEDS: OMEPRAZOLE 20 MG CAPSULE PO SCH (08:34)
[2020-02-01] MEDS: OXcarbazepine 300 MG TABLET PO SCH ×2 (08:35→16:34)
[2020-02-01] MEDS: ATORVASTATIN CALCIUM 20 MG TABLET PO SCH (08:35)
[2020-02-01] MEDS: TOPIRAMATE 100 MG TABLET PO SCH (08:35)
[2020-02-01] MEDS: BACLOFEN 10 MG TABLET PO SCH (08:35)
[2020-02-01] MEDS: LITHIUM CARBONATE 300 MG CAPSULE PO SCH ×3 (08:35→16:34)
[2020-02-01] MEDS: SPIRONOLACTONE 25 MG TABLET PO SCH (08:36)
[2020-02-01 08:59] VITALS: BP 112/66
[2020-02-01 19:42] VITALS: BP 122/76
[2020-02-01] MEDS: TraZODone HCL 100 MG TABLET PO SCH (20:23)
[2020-02-01] MEDS: OLANZapine 10 MG RAPDIS TABLET PO SCH (20:23)
[2020-02-02] MEDS: MetFORMIN HCL 500 MG TABLET PO SCH (06:35)
[2020-02-02] MEDS: LITHIUM CARBONATE 300 MG CAPSULE PO SCH ×2 (08:25→12:05)
[2020-02-02] MEDS: OXcarbazepine 300 MG TABLET PO SCH (08:25)
[2020-02-02] MEDS: ATORVASTATIN CALCIUM 20 MG TABLET PO SCH (08:25)
[2020-02-02] MEDS: SPIRONOLACTONE 25 MG TABLET PO SCH (08:26)
[2020-02-02] MEDS: BACLOFEN 10 MG TABLET PO SCH (08:26)
[2020-02-02] MEDS: TOPIRAMATE 100 MG TABLET PO SCH (08:26)
[2020-02-02] MEDS: OMEPRAZOLE 20 MG CAPSULE PO SCH (08:26)
[2020-02-02 08:46] VITALS: BP 149/97
== END 2020-02-02 16:00 | disposition home or self-care (01) | DRG 885 ==
LOC: EMS 19:14 → 3EI 01-28 02:00
PROVIDERS: ADMIT Psychiatry & Neurology Psychiatry; ATTEND Psychiatry & Neurology Psychiatry
DX: F31.9 Bipolar disorder, unspecified (principal); R45.851 Suicidal ideations; E11.9 Type 2 diabetes mellitus without complications; E78.00 Pure hypercholesterolemia, unspecified; E78.5 Hyperlipidemia, unspecified; F15.10 Other stimulant abuse, uncomplicated; G40.909 Epilepsy, unspecified, not intractable, without status epilepticus; I10 Essential (primary) hypertension; J45.909 Unspecified asthma, uncomplicated; K21.9 Gastro-esophageal reflux disease without esophagitis; F17.210 Nicotine dependence, cigarettes, uncomplicated; Z91.14 Patient's other noncompliance with medication regimen; F41.9 Anxiety disorder, unspecified; Z28.21 Immunization not carried out because of patient refusal; Z79.899 Other long term (current) drug therapy
CPT/HCPCS: G0480

== ENCOUNTER 2020-03-05 23:21 | Inpatient (IN) | payer MEDICAID, OTHER ==
[~2020-03-05] VITALS: Ht 162.6 cm; Wt 119.2 kg
[~2020-03-05 23:21] MED LIST changes: -DIPH50 PO; -LORA10TA7 PO
[2020-03-05] MEDS ORDERED: ACTIVATED CHARCOAL 50 GM/240 ML SUSPENSION PO ONE (23:45)
[2020-03-06 02:26] LABS: BASOPHILS % (AUTO) 0.1 % (0.0-2.0); EOSINOPHILS % (AUTO) 0 % (1.0-6.0); HEMATOCRIT 40.2 % (36-46); LYMPHOCYTES % (AUTO) 43.8 % (22.0-44.0); MEAN CORPUSCULAR HGB CONC 32.3 G/dL (31.0-37.0); MEAN CORPUSCULAR VOLUME 80 fL (80-100); MONOCYTES # (AUTO) 0.4 K/uL (0.1-1.0); MONOCYTES % (AUTO) 6.5 % (2.0-9.0); NEUTROPHILS # (AUTO) 3.4 K/uL (1.8-7.7); NEUTROPHILS % (AUTO) 49.6 % (40.0-70.0); PLATELET COUNT (AUTO) 249 K/uL (150-450); RED BLOOD CELL COUNT(AUTO) 5.01 MIL/uL (4.00-5.20); RED CELL DISTRIBUTION WIDTH 15.3 % (11.5-14.5)
[2020-03-06 03:07] LABS: SALICYLATE < 2.8 mg/dL (2.8-20.0)
[2020-03-06 03:08] LABS: ALKALINE PHOSPHATASE 64 U/L (46-116); BILIRUBIN,TOTAL 0.1 mg/dL (0.1-1.0); CALCIUM, TOTAL 8.5 mg/dL (8.8-10.5); CARBON DIOXIDE 27 mmol/L (22-29); CREATININE 0.78 mg/dL (0.60-1.30); GLOMERULAR FILTR. RATE CALC > 60 mL/min (>60); GLUCOSE,RANDOM 175 mg/dL (70-110); UREA NITROGEN, BLOOD 7 mg/dL (7-18)
[2020-03-06 03:10] LABS: ACETAMINOPHEN < 2 mcg/mL (10-30); ALANINE AMINOTRANSFERASE 38 U/L (12-78); ALBUMIN 3.3 g/dL (3.4-5.0); ANION GAP 10 mmol/L (8-16); ASPARTATE AMINOTRANSFERASE 21 U/L (15-37); CHLORIDE 102 mmol/L (98-107); POTASSIUM 3.8 mmol/L (3.5-5.1); SODIUM SERUM 139 mmol/L (136-145)
[2020-03-06] MEDS ORDERED: PRAZ2 PO (04:11)
[2020-03-06] MEDS ORDERED: GABA-1216 PO (04:11)
[2020-03-06 08:18] LABS: AMPHET/METH SCREEN,URINE NEGATIVE (NEGATIVE); BARBITURATE SCREEN, URINE NEGATIVE (NEGATIVE); BENZODIAZEPINES SCREEN,URINE NEGATIVE (NEGATIVE); CANNABINOID SCREEN,URINE NEGATIVE (NEGATIVE); COCAINE SCREEN,URINE NEGATIVE (NEGATIVE); METHADONE SCREEN, URINE NEGATIVE (NEGATIVE); OPIATE SCREEN,URINE NEGATIVE (NEGATIVE)
[2020-03-06 08:20] LABS: PHENCYCLIDINE SCREEN,URINE NEGATIVE (NEGATIVE)
[2020-03-06] MEDS ORDERED: ACETAMINOPHEN 325 MG TABLET PO PRN (13:15)
[2020-03-06] MEDS ORDERED: MAGNESIUM HYDROXIDE SUSPENSION 30 ML UDCUP PO PRN (13:15)
[2020-03-06] MEDS ORDERED: CloNIDine HCL 0.1 MG TABLET PO PRN (13:15)
[2020-03-06] MEDS ORDERED: ALBUTEROL SULFATE HFA 90 MCG/PUFF 8 GM INHALER IH PRN (13:15)
[2020-03-06] MEDS ORDERED: LOPERAMIDE HCL 2 MG CAPSULE PO PRN (13:15)
[2020-03-06] MEDS ORDERED: ONDANSETRON HCL 4 MG TABLET PO PRN (13:15)
[2020-03-06] MEDS ORDERED: PETROLATUM,WHITE 28 GM JELLY TP PRN (13:15)
[2020-03-06] MEDS ORDERED: MAG HYDROX/AL HYDROX/SIMETH ES 30 ML SUSPENSION UDCUP PO PRN (13:15)
[2020-03-06] MEDS ORDERED: GuaiFENesin/D-METHORPHAN [SUGAR-FREE] 200-20MG/10 ML SYRUP UDCUP PO PRN (13:15)
[2020-03-06] MEDS ORDERED: IBUPROFEN 400 MG TABLET PO PRN (13:15)
[2020-03-06] MEDS ORDERED: DOCUSATE SODIUM 100 MG CAPSULE PO PRN (13:15)
[2020-03-06 16:27] VITALS: BP 150/86
[2020-03-06] MEDS: OXcarbazepine 300 MG TABLET PO SCH (16:58)
[2020-03-06] MEDS: NICOTINE 14 MG/24 HOUR PATCH TD PRN (17:00)
[2020-03-06] MEDS: MetFORMIN HCL 500 MG TABLET PO SCH (17:23)
[2020-03-06] MEDS ORDERED: HALOPERIDOL 5 MG TABLET PO PRN (17:30)
[2020-03-06] MEDS ORDERED: ZOLPIDEM TARTRATE 10 MG TABLET PO PRN (17:30)
[2020-03-06] MEDS ORDERED: PNEUMOCOCCAL VACCINE POLYVALENT 0.5 ML VIAL [PPSV23] IM ONE (18:15)
[2020-03-06] MEDS: LORazepam 2 MG TABLET PO PRN (20:23)
[2020-03-07] MEDS: MetFORMIN HCL 500 MG TABLET PO SCH ×2 (07:02→16:59)
[2020-03-07 08:02] VITALS: BP 147/107
[2020-03-07] MEDS: BACLOFEN 10 MG TABLET PO SCH (08:07)
[2020-03-07] MEDS: OXcarbazepine 300 MG TABLET PO SCH ×2 (08:07→16:59)
[2020-03-07] MEDS: TOPIRAMATE 100 MG TABLET PO SCH (08:07)
[2020-03-07] MEDS: SPIRONOLACTONE 25 MG TABLET PO SCH (08:07)
[2020-03-07] MEDS: OMEPRAZOLE 20 MG CAPSULE PO SCH (08:07)
[2020-03-07] MEDS: ATORVASTATIN CALCIUM 20 MG TABLET PO SCH (08:07)
[2020-03-07] MEDS: LORazepam 2 MG TABLET PO PRN (08:09)
[2020-03-07] MEDS: LITHIUM CARBONATE 300 MG CAPSULE PO SCH ×2 (13:45→16:59)
[2020-03-07] MEDS: GABAPENTIN 100 MG CAPSULE PO SCH ×2 (13:45→16:59)
[2020-03-07 16:20] VITALS: BP 135/89
[2020-03-07] MEDS: NICOTINE 14 MG/24 HOUR PATCH TD PRN (17:04)
[2020-03-07] MEDS: OLANZapine 10 MG TABLET PO SCH (20:33)
[2020-03-07] MEDS: TraZODone HCL 100 MG TABLET PO SCH (20:33)
[2020-03-07] MEDS: PRAZOSIN HCL 2 MG CAPSULE PO SCH (20:33)
[2020-03-08] MEDS: MetFORMIN HCL 500 MG TABLET PO SCH ×2 (06:56→16:40)
[2020-03-08 07:06] LABS: GLUCOMETER DEV NAME(LOC) 3E.C; GLUCOSE,POINT OF CARE 125 MG/DL (70-110)
[2020-03-08] MEDS: BACLOFEN 10 MG TABLET PO SCH (08:01)
[2020-03-08] MEDS: TOPIRAMATE 100 MG TABLET PO SCH (08:01)
[2020-03-08] MEDS: OXcarbazepine 300 MG TABLET PO SCH ×2 (08:01→16:40)
[2020-03-08] MEDS: LITHIUM CARBONATE 300 MG CAPSULE PO SCH ×3 (08:01→16:40)
[2020-03-08] MEDS: GABAPENTIN 100 MG CAPSULE PO SCH ×3 (08:01→16:40)
[2020-03-08] MEDS: OMEPRAZOLE 20 MG CAPSULE PO SCH (08:01)
[2020-03-08] MEDS: SPIRONOLACTONE 25 MG TABLET PO SCH (08:04)
[2020-03-08] MEDS: ATORVASTATIN CALCIUM 20 MG TABLET PO SCH (08:05)
[2020-03-08 08:18] VITALS: BP_SYST 102; BP_SYST 111; BP_DIAS 56; BP_DIAS 73
[2020-03-08 16:29] VITALS: BP 117/63
[2020-03-08] MEDS: NICOTINE 14 MG/24 HOUR PATCH TD PRN (18:28)
[2020-03-08 20:52] VITALS: BP 118/66
[2020-03-08] MEDS: OLANZapine 10 MG TABLET PO SCH (20:52)
[2020-03-08] MEDS: PRAZOSIN HCL 2 MG CAPSULE PO SCH (20:52)
[2020-03-08] MEDS: TraZODone HCL 100 MG TABLET PO SCH (20:52)
[2020-03-09 06:30] LABS: GLUCOMETER DEV NAME(LOC) 3E.C; GLUCOSE,POINT OF CARE 120 MG/DL (70-110)
[2020-03-09] MEDS: MetFORMIN HCL 500 MG TABLET PO SCH (06:51)
[2020-03-09 08:00] VITALS: BP 125/56
[2020-03-09] MEDS: GABAPENTIN 100 MG CAPSULE PO SCH ×2 (08:06→12:42)
[2020-03-09] MEDS: OMEPRAZOLE 20 MG CAPSULE PO SCH (08:06)
[2020-03-09] MEDS: SPIRONOLACTONE 25 MG TABLET PO SCH (08:06)
[2020-03-09] MEDS: BACLOFEN 10 MG TABLET PO SCH (08:06)
[2020-03-09] MEDS: TOPIRAMATE 100 MG TABLET PO SCH (08:06)
[2020-03-09] MEDS: LITHIUM CARBONATE 300 MG CAPSULE PO SCH ×2 (08:06→12:42)
[2020-03-09] MEDS: ATORVASTATIN CALCIUM 20 MG TABLET PO SCH (08:06)
[2020-03-09] MEDS: OXcarbazepine 300 MG TABLET PO SCH (08:06)
== END 2020-03-09 14:00 | disposition home or self-care (01) | DRG 885 ==
LOC: EMS 23:22 → 3EC 03-06 12:07
PROVIDERS: ADMIT Psychiatry & Neurology Psychiatry; ATTEND Psychiatry & Neurology Psychiatry
DX: F31.9 Bipolar disorder, unspecified (principal); E11.9 Type 2 diabetes mellitus without complications; E78.00 Pure hypercholesterolemia, unspecified; E78.5 Hyperlipidemia, unspecified; F10.10 Alcohol abuse, uncomplicated; F20.9 Schizophrenia, unspecified; G40.909 Epilepsy, unspecified, not intractable, without status epilepticus; I10 Essential (primary) hypertension; J45.909 Unspecified asthma, uncomplicated; F17.210 Nicotine dependence, cigarettes, uncomplicated; F55.8 Abuse of other non-psychoactive substances; Z78.1 Physical restraint status
CPT/HCPCS: 90732; 93005; 99291; G0480; G0481

== ENCOUNTER 2020-03-23 22:23 | Emergency (ER) | payer MEDICAID, OTHER ==
[~2020-03-23] VITALS: Ht 162.6 cm; Wt 123.6 kg
[~2020-03-23 22:23] MED LIST changes: +GABA-1216 PO; +PRAZ2 PO
[2020-03-24] MEDS ORDERED: ACETAMINOPHEN 325 MG TABLET PO ONE
[2020-03-24] MEDS ORDERED: PERTUSS(ACELL),DIPH,TET VAC/PF 0.5 ML VIAL IM ONE
[2020-03-24] MEDS ORDERED: BACITRACIN 0.9 GM PACKET OINTMENT TP ONE
[2020-03-24 00:30] VITALS: BP 119/74
== END 2020-03-24 00:53 | disposition home or self-care (01) ==
LOC: EMS 22:23
DX: T22.111A Burn of first degree of right forearm, initial encounter (principal); J45.909 Unspecified asthma, uncomplicated; E11.9 Type 2 diabetes mellitus without complications; E78.00 Pure hypercholesterolemia, unspecified; I10 Essential (primary) hypertension; F41.9 Anxiety disorder, unspecified; F31.9 Bipolar disorder, unspecified; F17.210 Nicotine dependence, cigarettes, uncomplicated; F12.90 Cannabis use, unspecified, uncomplicated; Z79.84 Long term (current) use of oral hypoglycemic drugs; X10.2XXA Contact with fats and cooking oils, initial encounter; Y93.G3 Activity, cooking and baking; Y92.89 Other specified places as the place of occurrence of the external cause; Y99.8 Other external cause status
CPT/HCPCS: 90471; 90715

== ENCOUNTER 2020-04-26 14:12 | Emergency (ER) | payer OTHER ==
[~2020-04-26] VITALS: Ht 162.6 cm; Wt 123.0 kg
[2020-04-26] MEDS ORDERED: SODIUM CHLORIDE 0.9% 1,000 ML IV ONE (14:45)
[2020-04-26] MEDS ORDERED: ONDANSETRON HCL 4 MG/2 ML VIAL IVP ONE (14:45)
[2020-04-26] MEDS ORDERED: ACETAMINOPHEN 1000 MG/ISO-OSM 100 ML IV ONE (14:45)
[2020-04-26 14:51] LABS: BASOPHILS % (AUTO) 0.1 % (0.0-2.0); EOSINOPHILS % (AUTO) 0 % (1.0-6.0); HEMATOCRIT 40.5 % (36-46); HEMOGLOBIN 13.1 g/dL (12.0-16.0); LYMPHOCYTES # (AUTO) 1.6 K/uL (1.0-4.8); LYMPHOCYTES % (AUTO) 30.9 % (22.0-44.0); MEAN CORPUSCULAR HEMOGLOBIN 25.4 pg (26.0-34.0); MEAN CORPUSCULAR HGB CONC 32.2 G/dL (31.0-37.0); MEAN CORPUSCULAR VOLUME 79 fL (80-100); MONOCYTES # (AUTO) 0.4 K/uL (0.1-1.0); MONOCYTES % (AUTO) 7.7 % (2.0-9.0); NEUTROPHILS # (AUTO) 3.2 K/uL (1.8-7.7); NEUTROPHILS % (AUTO) 61.3 % (40.0-70.0); PLATELET COUNT (AUTO) 305 K/uL (150-450); RED BLOOD CELL COUNT(AUTO) 5.13 MIL/uL (4.00-5.20); RED CELL DISTRIBUTION WIDTH 14.7 % (11.5-14.5)
[2020-04-26 15:06] LABS: ANION GAP 10 mmol/L (8-16); CALCIUM, TOTAL 8.9 mg/dL (8.8-10.5); CARBON DIOXIDE 24 mmol/L (22-29); CHLORIDE 105 mmol/L (98-107); CREATININE 0.75 mg/dL (0.60-1.30); GLOMERULAR FILTR. RATE CALC > 60 mL/min (>60); GLUCOSE,RANDOM 112 mg/dL (70-110); POTASSIUM 3.6 mmol/L (3.5-5.1); SODIUM SERUM 139 mmol/L (136-145); UREA NITROGEN, BLOOD 7 mg/dL (7-18)
[2020-04-26 15:08] LABS: LITHIUM 0.26 mmol/L (0.60-1.20)
[2020-04-26 15:16] LABS: ALANINE AMINOTRANSFERASE 31 U/L (12-78); ALBUMIN 3.5 g/dL (3.4-5.0); ALKALINE PHOSPHATASE 65 U/L (46-116); ASPARTATE AMINOTRANSFERASE 14 U/L (15-37); BILIRUBIN,TOTAL 0.2 mg/dL (0.1-1.0); HCG,QUANTITATIVE < 1 mIU/mL (0-6); LIPASE 111 U/L (73-393); TOTAL PROTEIN, SERUM 7.6 g/dL (6.4-8.2)
[2020-04-26 15:34] LABS: APPEARANCE,URINE CLOUDY (CLEAR); BILIRUBIN,URINE NEGATIVE (NEGATIVE); GLUCOSE, URINE (UA) NEGATIVE (NEGATIVE); KETONES,URINE NEGATIVE (NEGATIVE); LEUKOCYTE ESTERASE ,URINE NEGATIVE (NEGATIVE); NITRATE,URINE NEGATIVE (NEGATIVE); OCCULT BLOOD,URINE NEGATIVE (NEGATIVE); PH,URINE 6.5 (5.0-8.0); PROTEIN,URINE NEGATIVE (NEGATIVE); UROBILINOGEN,URINE 0.2 mg/dL (<=1.0)
[2020-04-26 15:52] LABS: BACTERIA,URINE None Seen /HPF (None Seen); RBC,URINE None Seen /HPF (0-2); SQUAMOUS EPITHELIAL CELL,UR Moderate /LPF (None Seen); WBC,URINE None Seen /HPF (0-5)
[2020-04-26 16:31] VITALS: BP 118/60
== END 2020-04-26 16:20 | disposition home or self-care (01) ==
LOC: EMS 14:13
DX: Z03.818 Encounter for observation for suspected exposure to other biological agents ruled out (principal); R30.0 Dysuria; R10.9 Unspecified abdominal pain; R11.2 Nausea with vomiting, unspecified; R19.7 Diarrhea, unspecified; F41.9 Anxiety disorder, unspecified; F31.9 Bipolar disorder, unspecified; E11.9 Type 2 diabetes mellitus without complications; E78.00 Pure hypercholesterolemia, unspecified; I10 Essential (primary) hypertension; F17.210 Nicotine dependence, cigarettes, uncomplicated; F12.90 Cannabis use, unspecified, uncomplicated; Z79.84 Long term (current) use of oral hypoglycemic drugs
CPT/HCPCS: 36415; 80053; 80178; 81001; 83690; 84484; 84702; 85025; 93005; 96365; 96375; 99284; J0131; J2405; J7030; U0003

== ENCOUNTER 2020-04-29 22:23 | Emergency (ER) | payer OTHER ==
[~2020-04-29] VITALS: Ht 162.6 cm; Wt 131.5 kg
[2020-04-29] MEDS ORDERED: METOCLOPRAMIDE HCL 10 MG TABLET PO ONE (23:30)
[2020-04-29] MEDS ORDERED: DiphenhydrAMINE HCL 25 MG CAPSULE PO ONE (23:30)
[2020-04-30 01:41] VITALS: BP 149/86
== END 2020-04-30 01:41 | disposition home or self-care (01) ==
LOC: EMS 22:26
DX: R51 Headache (principal); F41.9 Anxiety disorder, unspecified; J45.909 Unspecified asthma, uncomplicated; F31.9 Bipolar disorder, unspecified; E11.9 Type 2 diabetes mellitus without complications; E78.00 Pure hypercholesterolemia, unspecified; I10 Essential (primary) hypertension; F17.210 Nicotine dependence, cigarettes, uncomplicated; F12.90 Cannabis use, unspecified, uncomplicated; Z79.84 Long term (current) use of oral hypoglycemic drugs
CPT/HCPCS: 70450

== ENCOUNTER 2020-11-29 22:37 | Inpatient (IN) | payer MEDICAID, OTHER ==
[~2020-11-29] VITALS: Ht 167.6 cm; Wt 126.9 kg
[~2020-11-29 22:37] MED LIST changes: -BACL10TA PO; -LITH300C3 PO; -OLAN10TA22 PO; -OXCA300T28 PO; -PRAZ2 PO
[2020-11-29] MEDS ORDERED: LITH300C3 PO (23:06)
[2020-11-29] MEDS ORDERED: LISI-893 PO (23:06)
[2020-11-29] MEDS ORDERED: BUSP10TA23 PO (23:06)
[2020-11-29] MEDS ORDERED: BACL10TA PO (23:06)
[2020-11-29] MEDS ORDERED: OLAN10TA3 PO (23:06)
[2020-11-29] MEDS ORDERED: OXCA300T57 PO (23:06)
[2020-11-29] MEDS ORDERED: PRAZ1 PO (23:06)
[2020-11-30 00:10] LABS: BASOPHILS % (AUTO) 0.4 % (0.0-2.0); EOSINOPHILS % (AUTO) 0.1 % (1.0-6.0); HEMOGLOBIN 12.6 g/dL (12.0-16.0); LYMPHOCYTES # (AUTO) 2.8 K/uL (1.0-4.8); LYMPHOCYTES % (AUTO) 40.9 % (22.0-44.0); MEAN CORPUSCULAR HEMOGLOBIN 25.2 pg (26.0-34.0); MEAN CORPUSCULAR HGB CONC 31.5 G/dL (31.0-37.0); MEAN CORPUSCULAR VOLUME 80 fL (80-100); MONOCYTES # (AUTO) 0.4 K/uL (0.1-1.0); MONOCYTES % (AUTO) 6.5 % (2.0-9.0); NEUTROPHILS # (AUTO) 3.5 K/uL (1.8-7.7); NEUTROPHILS % (AUTO) 52.1 % (40.0-70.0); PLATELET COUNT (AUTO) 286 K/uL (150-450); RED CELL DISTRIBUTION WIDTH 14.9 % (11.5-14.5)
[2020-11-30] MEDS ORDERED: LORazepam 1 MG TABLET PO ONE (00:15)
[2020-11-30 00:24] LABS: ANION GAP 8 mmol/L (8-16); CALCIUM, TOTAL 9.1 mg/dL (8.8-10.5); CARBON DIOXIDE 30 mmol/L (22-29); CHLORIDE 102 mmol/L (98-107); CREATININE 0.72 mg/dL (0.60-1.30); GLOMERULAR FILTR. RATE CALC > 60 mL/min (>60); GLUCOSE,RANDOM 124 mg/dL (70-110); POTASSIUM 3.9 mmol/L (3.5-5.1); SODIUM SERUM 140 mmol/L (136-145); UREA NITROGEN, BLOOD 8 mg/dL (7-18)
[2020-11-30 00:27] LABS: ALANINE AMINOTRANSFERASE 18 U/L (12-78); ALBUMIN 3.5 g/dL (3.4-5.0); ALKALINE PHOSPHATASE 49 U/L (46-116); ASPARTATE AMINOTRANSFERASE 18 U/L (15-37); BILIRUBIN,TOTAL 0.3 mg/dL (0.1-1.0); TOTAL PROTEIN, SERUM 7.3 g/dL (6.4-8.2)
[2020-11-30] MEDS ORDERED: ACETAMINOPHEN 500 MG TABLET PO ONE ×2 (00:45→20:00)
[2020-11-30 00:48] LABS: AMPHET/METH SCREEN,URINE NEGATIVE (NEGATIVE); BARBITURATE SCREEN, URINE NEGATIVE (NEGATIVE); BENZODIAZEPINES SCREEN,URINE NEGATIVE (NEGATIVE); CANNABINOID SCREEN,URINE POSITIVE (NEGATIVE); COCAINE SCREEN,URINE NEGATIVE (NEGATIVE); METHADONE SCREEN, URINE NEGATIVE (NEGATIVE); OPIATE SCREEN,URINE POSITIVE (NEGATIVE)
[2020-11-30 00:55] LABS: PHENCYCLIDINE SCREEN,URINE NEGATIVE (NEGATIVE)
[2020-11-30 11:27] LABS: COVID AG,FIA SOURCE NASOPHARYNGEAL
[2020-11-30] MEDS ORDERED: DiphenhydrAMINE HCL 50 MG/ML VIAL ONE (17:05)
[2020-11-30] MEDS ORDERED: HALOPERIDOL LACTATE 5 MG/ML VIAL ONE (17:05)
[2020-11-30] MEDS ORDERED: LORazepam 2 MG/ML VIAL ONE (17:05)
[2020-11-30] MEDS ORDERED: DiphenhydrAMINE HCL 50 MG/ML VIAL IM ONE (17:15)
[2020-11-30] MEDS ORDERED: HALOPERIDOL LACTATE 5 MG/ML VIAL IM ONE (17:15)
[2020-11-30] MEDS ORDERED: LORazepam 2 MG/ML VIAL IM ONE (17:15)
[2020-11-30] MEDS ORDERED: LORazepam 2 MG TABLET PO PRN (20:15)
[2020-11-30] MEDS ORDERED: ZOLPIDEM TARTRATE 10 MG TABLET PO PRN (20:15)
[2020-11-30] MEDS: TraZODone HCL 100 MG TABLET PO SCH (21:00)
[2020-11-30] MEDS: BENZTROPINE MESYLATE 1 MG TABLET PO SCH (21:00)
[2020-11-30] MEDS: LITHIUM CARBONATE 600 MG CAPSULE PO SCH (21:00)
[2020-11-30] MEDS: HALOPERIDOL 10 MG TABLET PO SCH (21:00)
[2020-12-01 05:01] LABS: CHOL/HDL RATIO 4.3 (3.9-5.7)
[2020-12-01] MEDS ORDERED: PETROLATUM,WHITE 28 GM JELLY TP PRN (08:45)
[2020-12-01] MEDS ORDERED: MAG HYDROX/AL HYDROX/SIMETH ES 30 ML SUSPENSION UDCUP PO PRN (08:45)
[2020-12-01] MEDS ORDERED: LOPERAMIDE HCL 2 MG CAPSULE PO PRN (08:45)
[2020-12-01] MEDS ORDERED: MAGNESIUM HYDROXIDE SUSPENSION 30 ML UDCUP PO PRN (08:45)
[2020-12-01] MEDS ORDERED: CloNIDine HCL 0.1 MG TABLET PO PRN (08:45)
[2020-12-01] MEDS ORDERED: ALBUTEROL SULFATE HFA 90 MCG/PUFF 8 GM INHALER IH PRN (08:45)
[2020-12-01] MEDS ORDERED: ONDANSETRON HCL 4 MG TABLET PO PRN (08:45)
[2020-12-01] MEDS ORDERED: DOCUSATE SODIUM 100 MG CAPSULE PO PRN (08:45)
[2020-12-01] MEDS ORDERED: ACETAMINOPHEN 325 MG TABLET PO PRN (08:45)
[2020-12-01] MEDS: ATORVASTATIN CALCIUM 20 MG TABLET PO SCH (10:02)
[2020-12-01] MEDS: GABAPENTIN 100 MG CAPSULE PO SCH ×2 (10:02→17:00)
[2020-12-01] MEDS: BACLOFEN 10 MG TABLET PO SCH ×3 (10:02→21:25)
[2020-12-01] MEDS: LISINOPRIL 10 MG TABLET PO SCH (10:02)
[2020-12-01 15:09] VITALS: BP 120/79
[2020-12-01] MEDS: OXcarbazepine 300 MG TABLET PO SCH (17:00)
[2020-12-01] MEDS: BENZTROPINE MESYLATE 1 MG TABLET PO SCH (17:00)
[2020-12-01] MEDS: LITHIUM CARBONATE 600 MG CAPSULE PO SCH (17:00)
[2020-12-01] MEDS: HALOPERIDOL 10 MG TABLET PO SCH (17:00)
[2020-12-01] MEDS: HALOPERIDOL 5 MG TABLET PO PRN (17:01)
[2020-12-01] MEDS: IBUPROFEN 400 MG TABLET PO PRN (17:02)
[2020-12-01] MEDS: MetFORMIN HCL 500 MG TABLET PO SCH (17:04)
[2020-12-01 18:13] VITALS: BP 143/76
[2020-12-01] MEDS ORDERED: INFLUENZA VIRUS VACCINE QVS 2020-21 (6MO+)/PF 60 MCG/0.5 ML SYRINGE IM ONE (18:45)
[2020-12-01] MEDS: TraZODone HCL 100 MG TABLET PO SCH (20:41)
[2020-12-01 21:41] LABS: GLUCOMETER DEV NAME(LOC) 3E.I 2; GLUCOSE,POINT OF CARE 97 MG/DL (70-110)
[2020-12-02 01:01] VITALS: BP 139/81
[2020-12-02] MEDS: IBUPROFEN 400 MG TABLET PO PRN (01:57)
[2020-12-02] MEDS: MetFORMIN HCL 500 MG TABLET PO SCH ×3 (06:21→16:51)
[2020-12-02 06:30] LABS: GLUCOMETER DEV NAME(LOC) 3E.I 2; GLUCOSE,POINT OF CARE 111 MG/DL (70-110)
[2020-12-02 08:36] VITALS: BP 124/67
[2020-12-02] MEDS: TOPIRAMATE 100 MG TABLET PO SCH (09:00)
[2020-12-02] MEDS: GABAPENTIN 100 MG CAPSULE PO SCH ×3 (09:00→16:50)
[2020-12-02] MEDS: SPIRONOLACTONE 25 MG TABLET PO SCH (09:00)
[2020-12-02] MEDS: OMEPRAZOLE 20 MG CAPSULE PO SCH (09:00)
[2020-12-02] MEDS: LITHIUM CARBONATE 600 MG CAPSULE PO SCH (09:33)
[2020-12-02] MEDS: BACLOFEN 10 MG TABLET PO SCH ×4 (09:34→20:22)
[2020-12-02] MEDS: OXcarbazepine 300 MG TABLET PO SCH ×2 (09:34→16:51)
[2020-12-02] MEDS: ATORVASTATIN CALCIUM 20 MG TABLET PO SCH (09:34)
[2020-12-02] MEDS: LISINOPRIL 10 MG TABLET PO SCH (09:35)
[2020-12-02] MEDS: BENZTROPINE MESYLATE 1 MG TABLET PO SCH ×2 (09:36→16:51)
[2020-12-02] MEDS: HALOPERIDOL 10 MG TABLET PO SCH ×2 (09:37→16:50)
[2020-12-02] MEDS: NICOTINE 14 MG/24 HOUR PATCH TD PRN (13:07)
[2020-12-02] MEDS: RisperiDONE 1 MG TABLET PO SCH (16:50)
[2020-12-02] MEDS: LITHIUM CARBONATE 300 MG CAPSULE PO SCH (16:51)
[2020-12-02 16:59] VITALS: BP 128/92
[2020-12-02 17:13] LABS: GLUCOMETER DEV NAME(LOC) 3E.I 2; GLUCOSE,POINT OF CARE 116 MG/DL (70-110)
[2020-12-02] MEDS: TraZODone HCL 100 MG TABLET PO SCH (20:22)
[2020-12-03] MEDS: IBUPROFEN 400 MG TABLET PO PRN (02:32)
[2020-12-03 03:06] VITALS: BP 103/74
[2020-12-03 05:32] LABS: GLUCOMETER DEV NAME(LOC) 3E.I 2; GLUCOSE,POINT OF CARE 113 MG/DL (70-110)
[2020-12-03] MEDS: MetFORMIN HCL 500 MG TABLET PO SCH ×2 (06:46→17:44)
[2020-12-03] MEDS: OMEPRAZOLE 20 MG CAPSULE PO SCH (08:08)
[2020-12-03] MEDS: RisperiDONE 1 MG TABLET PO SCH ×2 (08:08→17:01)
[2020-12-03] MEDS: LITHIUM CARBONATE 300 MG CAPSULE PO SCH ×2 (08:09→17:01)
[2020-12-03] MEDS: LISINOPRIL 10 MG TABLET PO SCH (08:09)
[2020-12-03] MEDS: HALOPERIDOL 10 MG TABLET PO SCH ×2 (08:09→17:02)
[2020-12-03] MEDS: ATORVASTATIN CALCIUM 20 MG TABLET PO SCH (08:09)
[2020-12-03] MEDS: BACLOFEN 10 MG TABLET PO SCH ×4 (08:09→20:24)
[2020-12-03] MEDS: GABAPENTIN 100 MG CAPSULE PO SCH ×3 (08:09→17:01)
[2020-12-03] MEDS: BENZTROPINE MESYLATE 1 MG TABLET PO SCH ×2 (08:09→17:01)
[2020-12-03] MEDS: OXcarbazepine 300 MG TABLET PO SCH ×2 (08:09→17:01)
[2020-12-03] MEDS: SPIRONOLACTONE 25 MG TABLET PO SCH (08:10)
[2020-12-03] MEDS: TOPIRAMATE 100 MG TABLET PO SCH (08:10)
[2020-12-03 08:20] VITALS: BP 104/55
[2020-12-03] MEDS: NICOTINE 14 MG/24 HOUR PATCH TD PRN (12:55)
[2020-12-03 17:22] LABS: GLUCOMETER DEV NAME(LOC) 3E.I 2; GLUCOSE,POINT OF CARE 144 MG/DL (70-110)
[2020-12-03 17:24] VITALS: BP 120/80
[2020-12-03] MEDS: TraZODone HCL 100 MG TABLET PO SCH (20:24)
[2020-12-04 05:18] VITALS: BP 96/49
[2020-12-04 05:33] LABS: GLUCOMETER DEV NAME(LOC) 3E.I 2; GLUCOSE,POINT OF CARE 114 MG/DL (70-110)
[2020-12-04] MEDS: MetFORMIN HCL 500 MG TABLET PO SCH ×2 (06:42→17:29)
[2020-12-04 08:20] VITALS: BP 139/75
[2020-12-04] MEDS: OMEPRAZOLE 20 MG CAPSULE PO SCH (08:23)
[2020-12-04] MEDS: LISINOPRIL 10 MG TABLET PO SCH (08:23)
[2020-12-04] MEDS: RisperiDONE 1 MG TABLET PO SCH ×2 (08:23→17:29)
[2020-12-04] MEDS: ATORVASTATIN CALCIUM 20 MG TABLET PO SCH (08:23)
[2020-12-04] MEDS: LITHIUM CARBONATE 300 MG CAPSULE PO SCH ×2 (08:23→17:29)
[2020-12-04] MEDS: GABAPENTIN 100 MG CAPSULE PO SCH ×3 (08:23→17:29)
[2020-12-04] MEDS: BACLOFEN 10 MG TABLET PO SCH ×4 (08:23→20:46)
[2020-12-04] MEDS: SPIRONOLACTONE 25 MG TABLET PO SCH (08:23)
[2020-12-04] MEDS: TOPIRAMATE 100 MG TABLET PO SCH (08:23)
[2020-12-04] MEDS: OXcarbazepine 300 MG TABLET PO SCH ×2 (08:24→17:29)
[2020-12-04] MEDS: BENZTROPINE MESYLATE 1 MG TABLET PO SCH ×2 (08:24→17:29)
[2020-12-04] MEDS: HALOPERIDOL 10 MG TABLET PO SCH ×2 (08:24→17:29)
[2020-12-04 16:00] VITALS: BP 128/85
[2020-12-04 17:09] LABS: GLUCOMETER DEV NAME(LOC) 3E.I 2; GLUCOSE,POINT OF CARE 115 MG/DL (70-110)
[2020-12-04] MEDS: TraZODone HCL 100 MG TABLET PO SCH (20:46)
[2020-12-05 05:58] LABS: GLUCOMETER DEV NAME(LOC) 3E.I 2; GLUCOSE,POINT OF CARE 109 MG/DL (70-110)
[2020-12-05 06:34] VITALS: BP 134/79
[2020-12-05] MEDS: MetFORMIN HCL 500 MG TABLET PO SCH ×2 (06:55→17:25)
[2020-12-05 08:41] VITALS: BP 157/61
[2020-12-05] MEDS: BACLOFEN 10 MG TABLET PO SCH ×4 (08:50→20:05)
[2020-12-05] MEDS: LISINOPRIL 10 MG TABLET PO SCH (08:51)
[2020-12-05] MEDS: OMEPRAZOLE 20 MG CAPSULE PO SCH (08:51)
[2020-12-05] MEDS: BENZTROPINE MESYLATE 1 MG TABLET PO SCH ×2 (08:51→17:25)
[2020-12-05] MEDS: ATORVASTATIN CALCIUM 20 MG TABLET PO SCH (08:51)
[2020-12-05] MEDS: LITHIUM CARBONATE 300 MG CAPSULE PO SCH ×2 (08:51→17:25)
[2020-12-05] MEDS: OXcarbazepine 300 MG TABLET PO SCH ×2 (08:51→17:25)
[2020-12-05] MEDS: RisperiDONE 1 MG TABLET PO SCH ×2 (08:51→17:25)
[2020-12-05] MEDS: HALOPERIDOL 10 MG TABLET PO SCH ×2 (08:51→17:25)
[2020-12-05] MEDS: TOPIRAMATE 100 MG TABLET PO SCH (08:51)
[2020-12-05] MEDS: GABAPENTIN 100 MG CAPSULE PO SCH ×3 (08:51→17:25)
[2020-12-05] MEDS: SPIRONOLACTONE 25 MG TABLET PO SCH (08:51)
[2020-12-05 16:00] VITALS: BP 115/82
[2020-12-05 16:58] LABS: GLUCOMETER DEV NAME(LOC) 3E.I 2; GLUCOSE,POINT OF CARE 102 MG/DL (70-110)
[2020-12-05] MEDS: TraZODone HCL 100 MG TABLET PO SCH (20:05)
[2020-12-05 20:43] VITALS: BP 126/62
[2020-12-06 05:32] LABS: GLUCOMETER DEV NAME(LOC) 3E.I 2; GLUCOSE,POINT OF CARE 112 MG/DL (70-110)
[2020-12-06] MEDS: MetFORMIN HCL 500 MG TABLET PO SCH ×2 (06:34→17:13)
[2020-12-06] MEDS: LISINOPRIL 10 MG TABLET PO SCH (08:37)
[2020-12-06] MEDS: BACLOFEN 10 MG TABLET PO SCH ×4 (08:37→20:55)
[2020-12-06] MEDS: TOPIRAMATE 100 MG TABLET PO SCH (08:37)
[2020-12-06] MEDS: ATORVASTATIN CALCIUM 20 MG TABLET PO SCH (08:37)
[2020-12-06] MEDS: OXcarbazepine 300 MG TABLET PO SCH ×2 (08:37→17:12)
[2020-12-06] MEDS: GABAPENTIN 100 MG CAPSULE PO SCH ×3 (08:38→17:13)
[2020-12-06] MEDS: LITHIUM CARBONATE 300 MG CAPSULE PO SCH ×2 (08:38→17:13)
[2020-12-06] MEDS: OMEPRAZOLE 20 MG CAPSULE PO SCH (08:38)
[2020-12-06] MEDS: SPIRONOLACTONE 25 MG TABLET PO SCH (08:38)
[2020-12-06] MEDS: HALOPERIDOL 10 MG TABLET PO SCH ×2 (08:38→17:13)
[2020-12-06] MEDS: RisperiDONE 1 MG TABLET PO SCH ×2 (08:38→17:13)
[2020-12-06] MEDS: BENZTROPINE MESYLATE 1 MG TABLET PO SCH ×2 (08:38→17:13)
[2020-12-06] MEDS: NICOTINE 14 MG/24 HOUR PATCH TD PRN (08:43)
[2020-12-06 09:58] VITALS: BP 108/50
[2020-12-06 17:01] LABS: GLUCOMETER DEV NAME(LOC) 3E.I 2; GLUCOSE,POINT OF CARE 126 MG/DL (70-110)
[2020-12-06 17:09] VITALS: BP 118/60
[2020-12-06] MEDS: TraZODone HCL 100 MG TABLET PO SCH (20:55)
[2020-12-07 05:08] VITALS: BP 99/52
[2020-12-07] MEDS: MetFORMIN HCL 500 MG TABLET PO SCH ×2 (06:43→17:02)
[2020-12-07] MEDS: SPIRONOLACTONE 25 MG TABLET PO SCH (09:07)
[2020-12-07] MEDS: TOPIRAMATE 100 MG TABLET PO SCH (09:07)
[2020-12-07] MEDS: GABAPENTIN 100 MG CAPSULE PO SCH ×3 (09:07→17:02)
[2020-12-07] MEDS: OXcarbazepine 300 MG TABLET PO SCH ×2 (09:07→17:02)
[2020-12-07] MEDS: LITHIUM CARBONATE 300 MG CAPSULE PO SCH ×2 (09:08→17:02)
[2020-12-07] MEDS: BACLOFEN 10 MG TABLET PO SCH ×4 (09:08→20:35)
[2020-12-07] MEDS: ATORVASTATIN CALCIUM 20 MG TABLET PO SCH (09:08)
[2020-12-07] MEDS: LISINOPRIL 10 MG TABLET PO SCH (09:08)
[2020-12-07] MEDS: BENZTROPINE MESYLATE 1 MG TABLET PO SCH ×2 (09:08→17:02)
[2020-12-07] MEDS: RisperiDONE 1 MG TABLET PO SCH ×2 (09:08→17:02)
[2020-12-07] MEDS: HALOPERIDOL 10 MG TABLET PO SCH ×2 (09:08→17:02)
[2020-12-07] MEDS: OMEPRAZOLE 20 MG CAPSULE PO SCH (09:10)
[2020-12-07 09:33] LABS: GLUCOMETER DEV NAME(LOC) 3E.I 2; GLUCOSE,POINT OF CARE 146 MG/DL (70-110)
[2020-12-07 09:40] VITALS: BP 113/85
[2020-12-07 16:36] LABS: GLUCOMETER DEV NAME(LOC) 3E.I 2; GLUCOSE,POINT OF CARE 126 MG/DL (70-110)
[2020-12-07] MEDS: TraZODone HCL 100 MG TABLET PO SCH (20:35)
[2020-12-07] MEDS: GuaiFENesin/D-METHORPHAN [SUGAR-FREE] 200-20MG/10 ML SYRUP UDCUP PO PRN (20:36)
[2020-12-08 05:48] LABS: GLUCOMETER DEV NAME(LOC) 3E.I 2; GLUCOSE,POINT OF CARE 111 MG/DL (70-110)
[2020-12-08] MEDS: MetFORMIN HCL 500 MG TABLET PO SCH ×2 (06:39→17:30)
[2020-12-08] MEDS: BENZTROPINE MESYLATE 1 MG TABLET PO SCH ×2 (08:29→16:51)
[2020-12-08] MEDS: LITHIUM CARBONATE 300 MG CAPSULE PO SCH ×2 (08:29→16:49)
[2020-12-08] MEDS: HALOPERIDOL 10 MG TABLET PO SCH ×2 (08:29→16:49)
[2020-12-08] MEDS: SPIRONOLACTONE 25 MG TABLET PO SCH (08:29)
[2020-12-08] MEDS: BACLOFEN 10 MG TABLET PO SCH ×4 (08:30→21:08)
[2020-12-08] MEDS: RisperiDONE 1 MG TABLET PO SCH ×2 (08:30→16:48)
[2020-12-08] MEDS: OMEPRAZOLE 20 MG CAPSULE PO SCH (08:30)
[2020-12-08] MEDS: LISINOPRIL 10 MG TABLET PO SCH (08:30)
[2020-12-08] MEDS: TOPIRAMATE 100 MG TABLET PO SCH (08:30)
[2020-12-08] MEDS: ATORVASTATIN CALCIUM 20 MG TABLET PO SCH (08:30)
[2020-12-08] MEDS: GABAPENTIN 100 MG CAPSULE PO SCH ×3 (08:30→16:48)
[2020-12-08] MEDS: OXcarbazepine 300 MG TABLET PO SCH ×2 (08:30→16:48)
[2020-12-08 08:46] VITALS: BP 124/62
[2020-12-08] MEDS: GuaiFENesin/D-METHORPHAN [SUGAR-FREE] 200-20MG/10 ML SYRUP UDCUP PO PRN (11:29)
[2020-12-08 16:01] VITALS: BP 129/67
[2020-12-08 16:17] LABS: COVID AG,FIA SOURCE NASAL SWAB
[2020-12-08 17:24] LABS: GLUCOMETER DEV NAME(LOC) 3E.I 2; GLUCOSE,POINT OF CARE 77 MG/DL (70-110)
[2020-12-08 17:29] LABS: GLUCOMETER DEV NAME(LOC) 3E.I 2; GLUCOSE,POINT OF CARE 159 MG/DL (70-110)
[2020-12-08] MEDS: IBUPROFEN 400 MG TABLET PO PRN (19:01)
[2020-12-08] MEDS: TraZODone HCL 100 MG TABLET PO SCH (21:08)
[2020-12-09 05:14] VITALS: BP 140/78
[2020-12-09 05:32] LABS: GLUCOMETER DEV NAME(LOC) 3E.I 2; GLUCOSE,POINT OF CARE 96 MG/DL (70-110)
[2020-12-09] MEDS: IBUPROFEN 400 MG TABLET PO PRN (05:34)
[2020-12-09] MEDS: MetFORMIN HCL 500 MG TABLET PO SCH ×2 (06:34→16:46)
[2020-12-09] MEDS: BACLOFEN 10 MG TABLET PO SCH ×4 (08:24→21:36)
[2020-12-09] MEDS: TOPIRAMATE 100 MG TABLET PO SCH (08:25)
[2020-12-09] MEDS: LISINOPRIL 10 MG TABLET PO SCH (08:25)
[2020-12-09] MEDS: RisperiDONE 1 MG TABLET PO SCH ×2 (08:25→16:46)
[2020-12-09] MEDS: OMEPRAZOLE 20 MG CAPSULE PO SCH (08:25)
[2020-12-09] MEDS: OXcarbazepine 300 MG TABLET PO SCH ×2 (08:25→16:46)
[2020-12-09] MEDS: GABAPENTIN 100 MG CAPSULE PO SCH ×3 (08:25→16:46)
[2020-12-09] MEDS: HALOPERIDOL 10 MG TABLET PO SCH ×2 (08:25→16:46)
[2020-12-09] MEDS: SPIRONOLACTONE 25 MG TABLET PO SCH (08:25)
[2020-12-09] MEDS: BENZTROPINE MESYLATE 1 MG TABLET PO SCH ×2 (08:25→16:45)
[2020-12-09] MEDS: LITHIUM CARBONATE 300 MG CAPSULE PO SCH ×2 (08:25→16:46)
[2020-12-09] MEDS: ATORVASTATIN CALCIUM 20 MG TABLET PO SCH (08:25)
[2020-12-09 08:34] VITALS: BP 133/77
[2020-12-09 16:08] VITALS: BP 117/74
[2020-12-09 16:41] LABS: GLUCOMETER DEV NAME(LOC) 3E.I 2; GLUCOSE,POINT OF CARE 116 MG/DL (70-110)
[2020-12-09 21:10] LABS: GLUCOMETER DEV NAME(LOC) 3E.I 2; GLUCOSE,POINT OF CARE 120 MG/DL (70-110)
[2020-12-09] MEDS: TraZODone HCL 100 MG TABLET PO SCH (21:36)
[2020-12-10] MEDS: MetFORMIN HCL 500 MG TABLET PO SCH ×2 (06:54→16:18)
[2020-12-10 08:24] VITALS: BP 145/88
[2020-12-10] MEDS: RisperiDONE 1 MG TABLET PO SCH ×2 (08:59→16:18)
[2020-12-10] MEDS: OMEPRAZOLE 20 MG CAPSULE PO SCH (08:59)
[2020-12-10] MEDS: BENZTROPINE MESYLATE 1 MG TABLET PO SCH ×2 (08:59→16:18)
[2020-12-10] MEDS: SPIRONOLACTONE 25 MG TABLET PO SCH (09:00)
[2020-12-10] MEDS: BACLOFEN 10 MG TABLET PO SCH ×4 (09:00→20:42)
[2020-12-10] MEDS: LISINOPRIL 10 MG TABLET PO SCH (09:01)
[2020-12-10] MEDS: OXcarbazepine 300 MG TABLET PO SCH ×2 (09:01→16:18)
[2020-12-10] MEDS: LITHIUM CARBONATE 300 MG CAPSULE PO SCH ×2 (09:02→16:18)
[2020-12-10] MEDS: GABAPENTIN 100 MG CAPSULE PO SCH ×3 (09:02→16:18)
[2020-12-10] MEDS: ATORVASTATIN CALCIUM 20 MG TABLET PO SCH (09:02)
[2020-12-10] MEDS: HALOPERIDOL 10 MG TABLET PO SCH ×2 (09:03→16:18)
[2020-12-10] MEDS: TOPIRAMATE 100 MG TABLET PO SCH (09:03)
[2020-12-10 16:00] VITALS: BP 110/66
[2020-12-10 16:58] LABS: GLUCOMETER DEV NAME(LOC) 3E.I 2; GLUCOSE,POINT OF CARE 130 MG/DL (70-110)
[2020-12-10] MEDS: TraZODone HCL 100 MG TABLET PO SCH (20:42)
[2020-12-11 05:49] LABS: GLUCOMETER DEV NAME(LOC) 3E.I 2; GLUCOSE,POINT OF CARE 117 MG/DL (70-110)
[2020-12-11 05:50] VITALS: BP 136/96
[2020-12-11] MEDS: IBUPROFEN 400 MG TABLET PO PRN (05:50)
[2020-12-11] MEDS: MetFORMIN HCL 500 MG TABLET PO SCH ×2 (06:44→17:25)
[2020-12-11] MEDS: RisperiDONE 1 MG TABLET PO SCH ×2 (08:29→16:05)
[2020-12-11] MEDS: BENZTROPINE MESYLATE 1 MG TABLET PO SCH ×2 (08:30→16:05)
[2020-12-11] MEDS: OMEPRAZOLE 20 MG CAPSULE PO SCH (08:30)
[2020-12-11] MEDS: SPIRONOLACTONE 25 MG TABLET PO SCH (08:31)
[2020-12-11] MEDS: BACLOFEN 10 MG TABLET PO SCH ×4 (08:31→20:52)
[2020-12-11] MEDS: TOPIRAMATE 100 MG TABLET PO SCH (08:32)
[2020-12-11 08:36] VITALS: BP 152/68
[2020-12-11] MEDS: LITHIUM CARBONATE 300 MG CAPSULE PO SCH ×2 (08:44→16:05)
[2020-12-11] MEDS: HALOPERIDOL 5 MG TABLET PO PRN (08:44)
[2020-12-11] MEDS: OXcarbazepine 300 MG TABLET PO SCH ×2 (08:45→16:05)
[2020-12-11] MEDS: ATORVASTATIN CALCIUM 20 MG TABLET PO SCH (08:46)
[2020-12-11] MEDS: LISINOPRIL 10 MG TABLET PO SCH (08:46)
[2020-12-11] MEDS: HALOPERIDOL 10 MG TABLET PO SCH ×2 (09:05→16:05)
[2020-12-11] MEDS: GABAPENTIN 100 MG CAPSULE PO SCH ×3 (09:05→16:05)
[2020-12-11] MEDS ORDERED: HALO10 PO (10:28)
[2020-12-11] MEDS ORDERED: BENZ1TAB10 PO (10:28)
[2020-12-11] MEDS ORDERED: RISP1TAB48 PO (10:29)
[2020-12-11 16:25] VITALS: BP 129/82
[2020-12-11 17:01] LABS: GLUCOMETER DEV NAME(LOC) 3EX.; GLUCOSE,POINT OF CARE 170 MG/DL (70-110)
[2020-12-11 20:08] VITALS: BP 105/59
[2020-12-11] MEDS: TraZODone HCL 100 MG TABLET PO SCH (20:52)
[2020-12-12 00:50] VITALS: BP 148/75
[2020-12-12] MEDS: IBUPROFEN 400 MG TABLET PO PRN (00:53)
[2020-12-12 05:26] LABS: GLUCOMETER DEV NAME(LOC) 3E.I 2; GLUCOSE,POINT OF CARE 137 MG/DL (70-110)
[2020-12-12] MEDS: MetFORMIN HCL 500 MG TABLET PO SCH (06:52)
[2020-12-12 08:09] VITALS: BP 131/88
[2020-12-12] MEDS: ATORVASTATIN CALCIUM 20 MG TABLET PO SCH (08:19)
[2020-12-12] MEDS: GABAPENTIN 100 MG CAPSULE PO SCH ×2 (08:19→12:33)
[2020-12-12] MEDS: LISINOPRIL 10 MG TABLET PO SCH (08:19)
[2020-12-12] MEDS: OXcarbazepine 300 MG TABLET PO SCH (08:19)
[2020-12-12] MEDS: HALOPERIDOL 10 MG TABLET PO SCH (08:20)
[2020-12-12] MEDS: SPIRONOLACTONE 25 MG TABLET PO SCH (08:20)
[2020-12-12] MEDS: BENZTROPINE MESYLATE 1 MG TABLET PO SCH (08:20)
[2020-12-12] MEDS: BACLOFEN 10 MG TABLET PO SCH ×2 (08:20→12:33)
[2020-12-12] MEDS: TOPIRAMATE 100 MG TABLET PO SCH (08:21)
[2020-12-12] MEDS: RisperiDONE 1 MG TABLET PO SCH (08:21)
[2020-12-12] MEDS: OMEPRAZOLE 20 MG CAPSULE PO SCH (08:21)
[2020-12-12] MEDS: LITHIUM CARBONATE 300 MG CAPSULE PO SCH (08:21)
== END 2020-12-12 12:45 | disposition home or self-care (01) | DRG 750 ==
LOC: EMS 22:37 → 3EI 11-30 20:06
PROVIDERS: ADMIT Psychiatry & Neurology Psychiatry; ATTEND Psychiatry & Neurology Psychiatry
DX: F25.9 Schizoaffective disorder, unspecified (principal); G40.909 Epilepsy, unspecified, not intractable, without status epilepticus; E11.9 Type 2 diabetes mellitus without complications; E66.9 Obesity, unspecified; E78.00 Pure hypercholesterolemia, unspecified; E78.5 Hyperlipidemia, unspecified; I10 Essential (primary) hypertension; J45.909 Unspecified asthma, uncomplicated; K21.9 Gastro-esophageal reflux disease without esophagitis; F17.210 Nicotine dependence, cigarettes, uncomplicated; Z20.822 Contact with and (suspected) exposure to COVID-19; F12.90 Cannabis use, unspecified, uncomplicated; F41.9 Anxiety disorder, unspecified; Z81.8 Family history of other mental and behavioral disorders; Z59.0 Homelessness; Z91.410 Personal history of adult physical and sexual abuse
CPT/HCPCS: 70450; 87426; 90686; 96372; 97110; 97116; 97161; 97166; 97530; 97535; 99285; 99291; G0480; J1200; J1630; J2060; Q0162

== ENCOUNTER 2020-12-14 04:23 | Emergency (ER) | payer MEDICAID, OTHER ==
[~2020-12-14] VITALS: Ht 162.6 cm; Wt 129.6 kg
[~2020-12-14 04:23] MED LIST changes: +BACL10TA PO; +BENZ1TAB10 PO; +HALO10 PO; +LISI-893 PO; +LITH300C3 PO; +OXCA300T57 PO; +RISP1TAB48 PO
[2020-12-14] MEDS ORDERED: NAPROXEN 250 MG TABLET PO ONE (05:00)
[2020-12-14 05:24] VITALS: BP 128/78
== END 2020-12-14 05:30 | disposition home or self-care (01) ==
LOC: EMS 04:25
DX: S92.352A Displaced fracture of fifth metatarsal bone, left foot, initial encounter for closed fracture (principal); F17.210 Nicotine dependence, cigarettes, uncomplicated; F31.9 Bipolar disorder, unspecified; E11.9 Type 2 diabetes mellitus without complications; X58.XXXA Exposure to other specified factors, initial encounter; Y93.89 Activity, other specified; Y92.89 Other specified places as the place of occurrence of the external cause; Y99.8 Other external cause status
CPT/HCPCS: 29580; 99283

== ENCOUNTER 2021-02-27 12:10 | Inpatient (IN) | payer MEDICAID ==
[~2021-02-27] VITALS: Ht 160 cm; Wt 132.9 kg
[~2021-02-27 12:10] MED LIST changes: +SPIR-37 PO; -SPIR25 PO
[2021-02-27] MEDS ORDERED: HALOPERIDOL 5 MG TABLET PO PRN (17:00)
[2021-02-27 22:01] VITALS: BP 121/77
[2021-02-27 22:09] LABS: GLUCOMETER DEV NAME(LOC) BV2S.; GLUCOSE,POINT OF CARE 184 MG/DL (70-110)
[2021-02-27] MEDS: ZOLPIDEM TARTRATE 10 MG TABLET PO PRN (22:28)
[2021-02-28 01:13] VITALS: BP 119/76
[2021-02-28] MEDS ORDERED: MetFORMIN HCL 500 MG TABLET PO SCH (07:00)
[2021-02-28] MEDS ORDERED: GuaiFENesin/D-METHORPHAN [SUGAR-FREE] 200-20MG/10 ML SYRUP UDCUP PO PRN (07:30)
[2021-02-28] MEDS ORDERED: IBUPROFEN 400 MG TABLET PO PRN (07:30)
[2021-02-28] MEDS ORDERED: ALBUTEROL SULFATE HFA 90 MCG/PUFF 8 GM INHALER IH PRN (07:30)
[2021-02-28] MEDS ORDERED: MAG HYDROX/AL HYDROX/SIMETH ES 30 ML SUSPENSION UDCUP PO PRN (07:30)
[2021-02-28] MEDS ORDERED: CloNIDine HCL 0.1 MG TABLET PO PRN (07:30)
[2021-02-28] MEDS ORDERED: MAGNESIUM HYDROXIDE SUSPENSION 30 ML UDCUP PO PRN (07:30)
[2021-02-28] MEDS ORDERED: ONDANSETRON HCL 4 MG TABLET PO PRN (07:30)
[2021-02-28] MEDS ORDERED: DOCUSATE SODIUM 100 MG CAPSULE PO PRN (07:30)
[2021-02-28] MEDS ORDERED: LOPERAMIDE HCL 2 MG CAPSULE PO PRN (07:30)
[2021-02-28] MEDS ORDERED: PETROLATUM,WHITE 28 GM JELLY TP PRN (07:30)
[2021-02-28 07:33] LABS: BASOPHILS % (AUTO) 0.4 % (0.0-2.0); EOSINOPHILS % (AUTO) 0 % (1.0-6.0); HEMATOCRIT 41.9 % (36-46); HEMOGLOBIN 13.2 g/dL (12.0-16.0); LYMPHOCYTES # (AUTO) 2.6 K/uL (1.0-4.8); LYMPHOCYTES % (AUTO) 48.2 % (22.0-44.0); MEAN CORPUSCULAR HGB CONC 31.4 G/dL (31.0-37.0); MEAN CORPUSCULAR VOLUME 80 fL (80-100); MONOCYTES # (AUTO) 0.4 K/uL (0.1-1.0); MONOCYTES % (AUTO) 7.4 % (2.0-9.0); NEUTROPHILS # (AUTO) 2.3 K/uL (1.8-7.7); PLATELET COUNT (AUTO) 294 K/uL (150-450); RED BLOOD CELL COUNT(AUTO) 5.27 MIL/uL (4.00-5.20); RED CELL DISTRIBUTION WIDTH 14.4 % (11.5-14.5)
[2021-02-28 08:11] LABS: ALANINE AMINOTRANSFERASE 32 U/L (12-78); ALBUMIN 2.9 g/dL (3.4-5.0); ALKALINE PHOSPHATASE 61 U/L (46-116); ANION GAP 11 mmol/L (8-16); ASPARTATE AMINOTRANSFERASE 18 U/L (15-37); BILIRUBIN,TOTAL 0.2 mg/dL (0.1-1.0); CALCIUM, TOTAL 9.1 mg/dL (8.8-10.5); CARBON DIOXIDE 27 mmol/L (22-29); CHLORIDE 102 mmol/L (98-107); CHOL/HDL RATIO 5.8 (3.9-5.7); CHOLESTEROL 210 mg/dL (131-200); CREATININE 0.58 mg/dL (0.60-1.30); FREE T4 (FREE THYROXINE) 0.85 ng/dL (0.76-1.46); GLOMERULAR FILTR. RATE CALC > 60 mL/min (>60); GLUCOSE,RANDOM 137 mg/dL (70-110); HDL CHOLESTEROL 36 mg/dL (40-60); LDL CHOL (CALC.) 106 mg/dL (0-130); POTASSIUM 4.3 mmol/L (3.5-5.1); SODIUM SERUM 140 mmol/L (136-145); THYROID STIMULATING HORMONE 0.64 uIU/mL (0.36-3.74); TOTAL PROTEIN, SERUM 6.9 g/dL (6.4-8.2); TRIGLYCERIDES 341 mg/dL (15-150); UREA NITROGEN, BLOOD 7 mg/dL (7-18)
[2021-02-28] MEDS: NICOTINE 14 MG/24 HOUR PATCH TD PRN (08:20)
[2021-02-28] MEDS: OMEPRAZOLE 20 MG CAPSULE PO SCH (08:20)
[2021-02-28] MEDS: LISINOPRIL 10 MG TABLET PO SCH (08:20)
[2021-02-28] MEDS: ATORVASTATIN CALCIUM 20 MG TABLET PO SCH (08:20)
[2021-02-28] MEDS: SPIRONOLACTONE 25 MG TABLET PO SCH (08:21)
[2021-02-28 08:31] VITALS: BP 120/73
[2021-02-28] MEDS ORDERED: LISINOPRIL 10 MG TABLET PO SCH (09:00)
[2021-02-28] MEDS ORDERED: ATORVASTATIN CALCIUM 20 MG TABLET PO SCH (09:00)
[2021-02-28] MEDS ORDERED: SPIRONOLACTONE 25 MG TABLET PO SCH (09:00)
[2021-02-28] MEDS ORDERED: NICOTINE 14 MG/24 HOUR PATCH TD SCH (09:00)
[2021-02-28] MEDS ORDERED: OMEPRAZOLE 20 MG CAPSULE PO SCH (09:00)
[2021-02-28] MEDS ORDERED: HALOPERIDOL LACTATE 5 MG/ML VIAL IM ONE (10:30)
[2021-02-28] MEDS ORDERED: DiphenhydrAMINE HCL 50 MG/ML VIAL IM ONE (10:30)
[2021-02-28] MEDS ORDERED: LORazepam 2 MG/ML VIAL IM ONE (10:30)
[2021-02-28] MEDS ORDERED: HALOPERIDOL LACTATE 5 MG/ML VIAL ONE (10:31)
[2021-02-28] MEDS ORDERED: DiphenhydrAMINE HCL 50 MG/ML VIAL ONE (10:31)
[2021-02-28] MEDS ORDERED: LORazepam 2 MG/ML VIAL ONE (10:31)
[2021-02-28] MEDS: ACETAMINOPHEN 325 MG TABLET PO PRN (11:45)
[2021-02-28 16:20] VITALS: BP 137/70
[2021-02-28] MEDS: MetFORMIN HCL 500 MG TABLET PO SCH (16:26)
[2021-02-28] MEDS: BENZTROPINE MESYLATE 1 MG TABLET PO SCH (16:26)
[2021-02-28] MEDS: LITHIUM CARBONATE 300 MG CAPSULE PO SCH (16:26)
[2021-02-28] MEDS: HALOPERIDOL 10 MG TABLET PO SCH (16:26)
[2021-02-28] MEDS: TraZODone HCL 100 MG TABLET PO SCH (20:16)
[2021-03-01 04:49] VITALS: BP 117/72
[2021-03-01] MEDS: MetFORMIN HCL 500 MG TABLET PO SCH ×2 (07:00→16:47)
[2021-03-01] MEDS: SPIRONOLACTONE 25 MG TABLET PO SCH (08:08)
[2021-03-01] MEDS: LITHIUM CARBONATE 300 MG CAPSULE PO SCH ×2 (08:08→16:48)
[2021-03-01] MEDS: ATORVASTATIN CALCIUM 20 MG TABLET PO SCH (08:09)
[2021-03-01] MEDS: LISINOPRIL 10 MG TABLET PO SCH (08:09)
[2021-03-01] MEDS: OMEPRAZOLE 20 MG CAPSULE PO SCH (08:09)
[2021-03-01] MEDS: HALOPERIDOL 10 MG TABLET PO SCH ×2 (08:09→16:47)
[2021-03-01] MEDS: BENZTROPINE MESYLATE 1 MG TABLET PO SCH ×2 (08:09→16:47)
[2021-03-01] MEDS: NICOTINE 14 MG/24 HOUR PATCH TD PRN (08:10)
[2021-03-01 08:24] VITALS: BP 151/80
[2021-03-01 10:00] VITALS: BP 138/74
[2021-03-01 16:22] VITALS: BP 136/75
[2021-03-01] MEDS: LORazepam 2 MG TABLET PO PRN (16:48)
[2021-03-01] MEDS: ACETAMINOPHEN 325 MG TABLET PO PRN (16:48)
[2021-03-01 18:45] VITALS: BP 138/80
[2021-03-01] MEDS: TraZODone HCL 100 MG TABLET PO SCH (20:13)
[2021-03-02 00:54] VITALS: BP 129/78
[2021-03-02] MEDS: MetFORMIN HCL 500 MG TABLET PO SCH ×2 (06:44→16:49)
[2021-03-02 08:30] VITALS: BP 110/68
[2021-03-02] MEDS: HALOPERIDOL 10 MG TABLET PO SCH ×2 (08:49→16:49)
[2021-03-02] MEDS: BENZTROPINE MESYLATE 1 MG TABLET PO SCH ×2 (08:49→16:49)
[2021-03-02] MEDS: ATORVASTATIN CALCIUM 20 MG TABLET PO SCH (08:49)
[2021-03-02] MEDS: LISINOPRIL 10 MG TABLET PO SCH (08:49)
[2021-03-02] MEDS: MULTIVITAMINS, THERAPEUTIC TABLET PO SCH (08:49)
[2021-03-02] MEDS: LITHIUM CARBONATE 300 MG CAPSULE PO SCH ×2 (08:49→16:49)
[2021-03-02] MEDS: OMEPRAZOLE 20 MG CAPSULE PO SCH (08:49)
[2021-03-02] MEDS: SPIRONOLACTONE 25 MG TABLET PO SCH (09:03)
[2021-03-02] MEDS: NICOTINE 14 MG/24 HOUR PATCH TD PRN (09:16)
[2021-03-02 16:55] VITALS: BP 113/68
[2021-03-02] MEDS: TraZODone HCL 100 MG TABLET PO SCH (20:03)
[2021-03-02] MEDS: ZOLPIDEM TARTRATE 10 MG TABLET PO PRN (20:47)
[2021-03-03 06:08] VITALS: BP 108/64
[2021-03-03] MEDS: MetFORMIN HCL 500 MG TABLET PO SCH ×2 (06:19→16:20)
[2021-03-03] MEDS: HALOPERIDOL 10 MG TABLET PO SCH ×2 (08:01→16:20)
[2021-03-03] MEDS: ATORVASTATIN CALCIUM 20 MG TABLET PO SCH (08:01)
[2021-03-03] MEDS: LITHIUM CARBONATE 300 MG CAPSULE PO SCH ×2 (08:01→16:20)
[2021-03-03] MEDS: SPIRONOLACTONE 25 MG TABLET PO SCH (08:01)
[2021-03-03] MEDS: MULTIVITAMINS, THERAPEUTIC TABLET PO SCH (08:01)
[2021-03-03] MEDS: LISINOPRIL 10 MG TABLET PO SCH (08:01)
[2021-03-03] MEDS: BENZTROPINE MESYLATE 1 MG TABLET PO SCH ×2 (08:01→16:20)
[2021-03-03] MEDS: OMEPRAZOLE 20 MG CAPSULE PO SCH (08:01)
[2021-03-03] MEDS: NICOTINE 14 MG/24 HOUR PATCH TD PRN (08:02)
[2021-03-03 08:22] VITALS: BP 123/66
[2021-03-03] MEDS: LORazepam 2 MG TABLET PO PRN ×2 (10:54→18:51)
[2021-03-03 16:59] VITALS: BP 107/68
[2021-03-03] MEDS: TraZODone HCL 100 MG TABLET PO SCH (20:43)
[2021-03-03] MEDS: ZOLPIDEM TARTRATE 10 MG TABLET PO PRN (20:43)
[2021-03-04 06:10] VITALS: BP 114/71
[2021-03-04] MEDS: MetFORMIN HCL 500 MG TABLET PO SCH (06:30)
[2021-03-04] MEDS: ATORVASTATIN CALCIUM 20 MG TABLET PO SCH (08:19)
[2021-03-04] MEDS: LISINOPRIL 10 MG TABLET PO SCH (08:19)
[2021-03-04] MEDS: BENZTROPINE MESYLATE 1 MG TABLET PO SCH (08:19)
[2021-03-04] MEDS: HALOPERIDOL 10 MG TABLET PO SCH (08:19)
[2021-03-04] MEDS: MULTIVITAMINS, THERAPEUTIC TABLET PO SCH (08:19)
[2021-03-04] MEDS: LITHIUM CARBONATE 300 MG CAPSULE PO SCH (08:19)
[2021-03-04] MEDS: OMEPRAZOLE 20 MG CAPSULE PO SCH (08:19)
[2021-03-04] MEDS: SPIRONOLACTONE 25 MG TABLET PO SCH (08:19)
[2021-03-04] MEDS: NICOTINE 14 MG/24 HOUR PATCH TD PRN (08:22)
[2021-03-04 08:24] VITALS: BP 118/81
[2021-03-04] MEDS ORDERED: HALO10 PO (09:08)
[2021-03-04] MEDS ORDERED: BENZ1TAB10 PO (09:08)
[2021-03-04] MEDS ORDERED: TRAZ-257 PO (09:08)
[2021-03-04] MEDS ORDERED: LITH300C3 PO (09:08)
== END 2021-03-04 15:40 | disposition home or self-care (01) | DRG 750 ==
LOC: B2S 17:02 → B3A 02-28 11:00
DX: F25.1 Schizoaffective disorder, depressive type (principal); E11.9 Type 2 diabetes mellitus without complications; F79 Unspecified intellectual disabilities; G40.909 Epilepsy, unspecified, not intractable, without status epilepticus; I10 Essential (primary) hypertension; J44.9 Chronic obstructive pulmonary disease, unspecified; K21.9 Gastro-esophageal reflux disease without esophagitis; E78.00 Pure hypercholesterolemia, unspecified; E78.5 Hyperlipidemia, unspecified; F12.10 Cannabis abuse, uncomplicated; Z80.3 Family history of malignant neoplasm of breast; Z79.899 Other long term (current) drug therapy
CPT/HCPCS: 80053; 80061; 80178; 82962; 83036; 84439; 84443; 85025; 87081; J1200; J1630; J2060

== ENCOUNTER 2021-04-01 11:04 | Emergency (ER) | payer MEDICAID, OTHER ==
[~2021-04-01] VITALS: Ht 170.2 cm; Wt 127.3 kg
[~2021-04-01 11:04] MED LIST changes: -BACL10TA PO; -GABA-1216 PO; -OMEP20 PO; -OXCA300T57 PO; -RISP1TAB48 PO; -TOPI100T37 PO
[2021-04-01] MEDS ORDERED: SODIUM CHLORIDE 0.9% 1,000 ML IV ONE (13:00)
[2021-04-01 13:31] LABS: BASOPHILS % (AUTO) 0.2 % (0.0-2.0); EOSINOPHILS % (AUTO) 0 % (1.0-6.0); HEMATOCRIT 43.1 % (36-46); HEMOGLOBIN 13.8 g/dL (12.0-16.0); LYMPHOCYTES # (AUTO) 2.5 K/uL (1.0-4.8); MEAN CORPUSCULAR HEMOGLOBIN 25.4 pg (26.0-34.0); MEAN CORPUSCULAR VOLUME 79 fL (80-100); MONOCYTES # (AUTO) 0.4 K/uL (0.1-1.0); MONOCYTES % (AUTO) 8.5 % (2.0-9.0); NEUTROPHILS # (AUTO) 2.2 K/uL (1.8-7.7); NEUTROPHILS % (AUTO) 42.3 % (40.0-70.0); PLATELET COUNT (AUTO) 294 K/uL (150-450); RED BLOOD CELL COUNT(AUTO) 5.44 MIL/uL (4.00-5.20); RED CELL DISTRIBUTION WIDTH 14.3 % (11.5-14.5)
[2021-04-01 13:33] LABS: COVID AG,FIA SOURCE NASOPHARYNGEAL
[2021-04-01 13:38] LABS: ANION GAP 13 mmol/L (8-16); CARBON DIOXIDE 22 mmol/L (22-29); CHLORIDE 101 mmol/L (98-107); CREATININE 0.64 mg/dL (0.60-1.30); GLOMERULAR FILTR. RATE CALC > 60 mL/min (>60); GLUCOSE,RANDOM 123 mg/dL (70-110); POTASSIUM 3.9 mmol/L (3.5-5.1); SODIUM SERUM 136 mmol/L (136-145); UREA NITROGEN, BLOOD 7 mg/dL (7-18)
[2021-04-01 13:48] LABS: ALANINE AMINOTRANSFERASE 39 U/L (12-78); ALBUMIN 3.9 g/dL (3.4-5.0); ALKALINE PHOSPHATASE 65 U/L (46-116); ASPARTATE AMINOTRANSFERASE 25 U/L (15-37); BILIRUBIN,TOTAL 0.5 mg/dL (0.1-1.0); HCG,QUANTITATIVE < 1 mIU/mL (0-6); LIPASE 45 U/L (73-393); TOTAL PROTEIN, SERUM 8.2 g/dL (6.4-8.2)
[2021-04-01] MEDS ORDERED: KETOROLAC TROMETHAMINE 30 MG/ML VIAL IVP ONE (14:00)
[2021-04-01 14:30] VITALS: BP 142/95
[2021-04-01 14:34] LABS: APPEARANCE,URINE CLOUDY (CLEAR); BILIRUBIN,URINE NEGATIVE (NEGATIVE); GLUCOSE, URINE (UA) NEGATIVE (NEGATIVE); KETONES,URINE TRACE mg/dL (NEGATIVE); LEUKOCYTE ESTERASE ,URINE TRACE (NEGATIVE); NITRATE,URINE NEGATIVE (NEGATIVE); OCCULT BLOOD,URINE LARGE (NEGATIVE); PH,URINE 5.5 (5.0-8.0); PROTEIN,URINE POS 1+ (NEGATIVE)
[2021-04-01 14:51] LABS: BACTERIA,URINE None Seen /HPF (None Seen); RBC,URINE 26-50 /HPF (0-2); SQUAMOUS EPITHELIAL CELL,UR Few /LPF (None Seen); WBC,URINE 0-2 /HPF (0-5)
== END 2021-04-01 16:23 | disposition home or self-care (01) ==
LOC: EMS 11:16
DX: J40 Bronchitis, not specified as acute or chronic (principal); F25.9 Schizoaffective disorder, unspecified; E11.9 Type 2 diabetes mellitus without complications; E78.00 Pure hypercholesterolemia, unspecified; F32.9 Major depressive disorder, single episode, unspecified; F17.210 Nicotine dependence, cigarettes, uncomplicated; F12.90 Cannabis use, unspecified, uncomplicated; Z20.822 Contact with and (suspected) exposure to COVID-19
CPT/HCPCS: 36415; 71045; 80053; 81001; 83690; 84702; 85025; 87426; 96361; 96374; 99284; J1885; J7030; U0003

== ENCOUNTER 2021-09-16 19:04 | Emergency (ER) | payer OTHER ==
[~2021-09-16] VITALS: Ht 170.2 cm; Wt 127.3 kg
[~2021-09-16 19:04] MED LIST changes: +METF-1211 PO; -METF-960 PO
[2021-09-16 21:03] LABS: COVID AG,FIA SOURCE NASOPHARYNGEAL
[2021-09-16 23:06] VITALS: BP 157/86
[2021-09-16 23:38] LABS: INFLUENZA TYPE A NEGATIVE FOR TYPE A (NEGATIVE); INFLUENZA TYPE B NEGATIVE FOR TYPE B (NEGATIVE)
== END 2021-09-16 23:18 | disposition home or self-care (01) ==
LOC: EMS 19:07
DX: J40 Bronchitis, not specified as acute or chronic (principal); F41.9 Anxiety disorder, unspecified; F31.9 Bipolar disorder, unspecified; E11.9 Type 2 diabetes mellitus without complications; E78.00 Pure hypercholesterolemia, unspecified; F20.9 Schizophrenia, unspecified; I10 Essential (primary) hypertension; F17.210 Nicotine dependence, cigarettes, uncomplicated; F12.90 Cannabis use, unspecified, uncomplicated; Z20.822 Contact with and (suspected) exposure to COVID-19; Z79.84 Long term (current) use of oral hypoglycemic drugs
CPT/HCPCS: 71045; 87804; 99284

== ENCOUNTER 2021-12-17 19:00 | Emergency (ER) | payer OTHER ==
[~2021-12-17] VITALS: Ht 162.6 cm; Wt 104.0 kg
[~2021-12-17 19:00] MED LIST changes: -BENZ1TAB10 PO; +BENZ1TAB96 PO
[2021-12-17] MEDS ORDERED: BUSP10TA23 PO (19:35)
[2021-12-17] MEDS ORDERED: LORA10TA7 PO (19:35)
[2021-12-17] MEDS ORDERED: OLAN15TA36 PO (19:35)
[2021-12-17] MEDS ORDERED: TOPI200T16 PO (19:35)
[2021-12-17] MEDS ORDERED: ATOR40TA71 PO (19:35)
[2021-12-17] MEDS ORDERED: BECL10.62 IH (19:35)
[2021-12-17] MEDS ORDERED: TIOT185 IH (19:35)
[2021-12-17] MEDS ORDERED: BACL20TA PO (19:35)
[2021-12-17] MEDS ORDERED: GABA-1181 PO (19:35)
[2021-12-17] MEDS ORDERED: NORG1TAB14 PO (19:35)
[2021-12-17] MEDS ORDERED: BENZ100C68 PO (19:35)
[2021-12-17] MEDS ORDERED: ERGO500054 PO (19:35)
[2021-12-17] MEDS ORDERED: PALI234D IM (19:35)
[2021-12-17] MEDS ORDERED: NICO-703 TD (19:35)
[2021-12-17] MEDS ORDERED: IBUPROFEN 600 MG TABLET PO ONE (19:45)
[2021-12-17 20:00] VITALS: BP 125/80
[2021-12-17] MEDS ORDERED: CEPH-558 PO (20:33)
[2021-12-17] MEDS ORDERED: DOXY-354 PO (20:35)
== END 2021-12-17 21:18 | disposition home or self-care (01) ==
LOC: EMS 19:00
DX: L73.2 Hidradenitis suppurativa (principal); F25.9 Schizoaffective disorder, unspecified; M79.672 Pain in left foot; I10 Essential (primary) hypertension; E11.9 Type 2 diabetes mellitus without complications; E78.00 Pure hypercholesterolemia, unspecified; F31.9 Bipolar disorder, unspecified; J45.909 Unspecified asthma, uncomplicated; F41.9 Anxiety disorder, unspecified; F12.90 Cannabis use, unspecified, uncomplicated; F17.210 Nicotine dependence, cigarettes, uncomplicated; Z79.899 Other long term (current) drug therapy; Z79.84 Long term (current) use of oral hypoglycemic drugs
CPT/HCPCS: 99283

== ENCOUNTER 2022-01-30 08:52 | Emergency (ER) | payer OTHER ==
[~2022-01-30] VITALS: Ht 162.6 cm; Wt 40.9 kg
[~2022-01-30 08:52] MED LIST changes: -ATOR20TA86 PO; +ATOR40TA71 PO; +BACL20TA PO; +BECL10.62 IH; +BENZ100C68 PO; +BUSP10TA23 PO; +CEPH-558 PO; +DOXY-354 PO; +ERGO500054 PO; +GABA-1181 PO; +LORA10TA7 PO; +NICO-703 TD; +NORG1TAB14 PO; +OLAN15TA36 PO; +PALI234D IM; +TIOT185 IH; +TOPI200T16 PO
[2022-01-30] MEDS ORDERED: DIPH25 PO (09:41)
[2022-01-30] MEDS ORDERED: HYDR30CR39 TP (09:41)
[2022-01-30 09:48] VITALS: BP 129/72
== END 2022-01-30 09:54 | disposition home or self-care (01) ==
LOC: EMS 08:52
DX: L25.9 Unspecified contact dermatitis, unspecified cause (principal); F12.90 Cannabis use, unspecified, uncomplicated; F17.210 Nicotine dependence, cigarettes, uncomplicated; F31.9 Bipolar disorder, unspecified; E11.9 Type 2 diabetes mellitus without complications; E78.00 Pure hypercholesterolemia, unspecified; F41.9 Anxiety disorder, unspecified; I10 Essential (primary) hypertension; Z79.899 Other long term (current) drug therapy
CPT/HCPCS: 99282; Z7502

== ENCOUNTER 2022-02-18 09:03 | Emergency (ER) | payer OTHER ==
[~2022-02-18] VITALS: Ht 162.6 cm; Wt 131.8 kg
[~2022-02-18 09:03] MED LIST changes: +DIPH25 PO; -HALO10 PO; +HALO10TA21 PO; +HYDR30CR39 TP
[2022-02-18 10:16] LABS: COVID AG,FIA SOURCE NASAL SWAB
[2022-02-18 10:33] LABS: BASOPHILS % (AUTO) 0.4 % (0.0-2.0); EOSINOPHILS % (AUTO) 0 % (1.0-6.0); HEMATOCRIT 40.1 % (36-46); HEMOGLOBIN 13.2 g/dL (12.0-16.0); LYMPHOCYTES # (AUTO) 2.5 K/uL (1.0-4.8); LYMPHOCYTES % (AUTO) 50.5 % (22.0-44.0); MEAN CORPUSCULAR HEMOGLOBIN 25.4 pg (26.0-34.0); MEAN CORPUSCULAR VOLUME 77 fL (80-100); MONOCYTES # (AUTO) 0.4 K/uL (0.1-1.0); MONOCYTES % (AUTO) 7.4 % (2.0-9.0); NEUTROPHILS # (AUTO) 2.1 K/uL (1.8-7.7); NEUTROPHILS % (AUTO) 41.7 % (40.0-70.0); PLATELET COUNT (AUTO) 312 K/uL (150-450); RED BLOOD CELL COUNT(AUTO) 5.21 MIL/uL (4.00-5.20); RED CELL DISTRIBUTION WIDTH 14.2 % (11.5-14.5)
[2022-02-18 10:46] LABS: ANION GAP 9 mmol/L (8-16); CALCIUM, TOTAL 8.8 mg/dL (8.8-10.5); CARBON DIOXIDE 26 mmol/L (22-29); CHLORIDE 102 mmol/L (98-107); GLUCOSE,RANDOM 123 mg/dL (70-110); POTASSIUM 3.7 mmol/L (3.5-5.1); SODIUM SERUM 137 mmol/L (136-145); UREA NITROGEN, BLOOD 5 mg/dL (7-18)
[2022-02-18 10:48] LABS: GLOMERULAR FILTR. RATE CALC > 60 mL/min (>60)
[2022-02-18 10:58] LABS: ALANINE AMINOTRANSFERASE 26 U/L (12-78); ALBUMIN 3.2 g/dL (3.4-5.0); ALKALINE PHOSPHATASE 56 U/L (46-116); ASPARTATE AMINOTRANSFERASE 14 U/L (15-37); BILIRUBIN,TOTAL 0.3 mg/dL (0.1-1.0); HCG,QUANTITATIVE < 1 mIU/mL (0-6); TOTAL PROTEIN, SERUM 6.9 g/dL (6.4-8.2)
[2022-02-18 11:14] VITALS: BP 130/92
== END 2022-02-18 11:47 | disposition home or self-care (01) ==
LOC: EMS 09:06
DX: R07.89 Other chest pain (principal); F41.9 Anxiety disorder, unspecified; J45.909 Unspecified asthma, uncomplicated; F31.9 Bipolar disorder, unspecified; E11.9 Type 2 diabetes mellitus without complications; E78.00 Pure hypercholesterolemia, unspecified; I10 Essential (primary) hypertension; F20.9 Schizophrenia, unspecified; F91.3 Oppositional defiant disorder; I34.0 Nonrheumatic mitral (valve) insufficiency; F12.90 Cannabis use, unspecified, uncomplicated; F17.210 Nicotine dependence, cigarettes, uncomplicated; Z86.59 Personal history of other mental and behavioral disorders; Z86.69 Personal history of other diseases of the nervous system and sense organs; Z20.822 Contact with and (suspected) exposure to COVID-19
CPT/HCPCS: 80053; 84484; 84702; 85025; 93005; 99284; 99285

== ENCOUNTER 2022-04-27 23:05 | Emergency (ER) | payer OTHER ==
[~2022-04-27] VITALS: Ht 162.6 cm; Wt 130.9 kg
[2022-04-27] MEDS ORDERED: ALBUTEROL SULFATE 2.5 MG/0.5 ML NEB SOLUTION NEB ONE (23:15)
[2022-04-27] MEDS ORDERED: PredniSONE 20 MG TABLET PO ONE (23:15)
[2022-04-27 23:55] LABS: BASOPHILS % (AUTO) 0.2 % (0.0-2.0); EOSINOPHILS % (AUTO) 0 % (1.0-6.0); HEMATOCRIT 38.1 % (36-46); HEMOGLOBIN 12.5 g/dL (12.0-16.0); LYMPHOCYTES # (AUTO) 3.1 K/uL (1.0-4.8); MEAN CORPUSCULAR HEMOGLOBIN 25.3 pg (26.0-34.0); MEAN CORPUSCULAR HGB CONC 32.7 G/dL (31.0-37.0); MEAN CORPUSCULAR VOLUME 77 fL (80-100); MONOCYTES # (AUTO) 0.3 K/uL (0.1-1.0); MONOCYTES % (AUTO) 5.7 % (2.0-9.0); NEUTROPHILS # (AUTO) 2.4 K/uL (1.8-7.7); NEUTROPHILS % (AUTO) 41.1 % (40.0-70.0); PLATELET COUNT (AUTO) 257 K/uL (150-450); RED BLOOD CELL COUNT(AUTO) 4.92 MIL/uL (4.00-5.20); RED CELL DISTRIBUTION WIDTH 14.9 % (11.5-14.5)
[2022-04-28 00:05] LABS: ANION GAP 6 mmol/L (8-16); CALCIUM, TOTAL 8.6 mg/dL (8.8-10.5); CARBON DIOXIDE 29 mmol/L (22-29); CHLORIDE 101 mmol/L (98-107); CREATININE 0.67 mg/dL (0.60-1.30); GLUCOSE,RANDOM 166 mg/dL (70-110); POTASSIUM 3.5 mmol/L (3.5-5.1); SODIUM SERUM 136 mmol/L (136-145); UREA NITROGEN, BLOOD 6 mg/dL (7-18)
[2022-04-28 00:06] LABS: GLOMERULAR FILTR. RATE CALC > 60 mL/min (>60)
[2022-04-28 00:11] LABS: ALANINE AMINOTRANSFERASE 32 U/L (12-78); ALBUMIN 3.1 g/dL (3.4-5.0); ALKALINE PHOSPHATASE 71 U/L (46-116); ASPARTATE AMINOTRANSFERASE 17 U/L (15-37); TOTAL PROTEIN, SERUM 6.4 g/dL (6.4-8.2)
[2022-04-28 00:23] LABS: BILIRUBIN,TOTAL 0.2 mg/dL (0.1-1.0)
[2022-04-28] MEDS ORDERED: PRED-554 PO (00:37)
[2022-04-28 01:06] VITALS: BP 140/80
== END 2022-04-28 01:15 | disposition home or self-care (01) ==
LOC: EMS 23:05
DX: T78.40XA Allergy, unspecified, initial encounter (principal); F41.9 Anxiety disorder, unspecified; J45.909 Unspecified asthma, uncomplicated; F31.9 Bipolar disorder, unspecified; E11.9 Type 2 diabetes mellitus without complications; E78.00 Pure hypercholesterolemia, unspecified; I10 Essential (primary) hypertension; F20.9 Schizophrenia, unspecified; F91.3 Oppositional defiant disorder; I34.0 Nonrheumatic mitral (valve) insufficiency; F17.210 Nicotine dependence, cigarettes, uncomplicated; F12.90 Cannabis use, unspecified, uncomplicated; X58.XXXA Exposure to other specified factors, initial encounter
CPT/HCPCS: 99283; 80053; 85025; 36415; 94640; J7512

== ENCOUNTER 2022-05-25 09:55 | Emergency (ER) | payer OTHER ==
[~2022-05-25] VITALS: Ht 167.6 cm; Wt 113.0 kg
[~2022-05-25 09:55] MED LIST changes: +PRED-554 PO
[2022-05-25 11:04] LABS: BASOPHILS % (AUTO) 0.7 % (0.0-2.0); EOSINOPHILS % (AUTO) 0 % (1.0-6.0); HEMATOCRIT 38.8 % (36-46); HEMOGLOBIN 12.7 g/dL (12.0-16.0); LYMPHOCYTES # (AUTO) 3.1 K/uL (1.0-4.8); LYMPHOCYTES % (AUTO) 48.2 % (22.0-44.0); MEAN CORPUSCULAR HEMOGLOBIN 25.3 pg (26.0-34.0); MEAN CORPUSCULAR HGB CONC 32.8 G/dL (31.0-37.0); MEAN CORPUSCULAR VOLUME 77 fL (80-100); MONOCYTES # (AUTO) 0.4 K/uL (0.1-1.0); MONOCYTES % (AUTO) 5.7 % (2.0-9.0); NEUTROPHILS # (AUTO) 2.9 K/uL (1.8-7.7); NEUTROPHILS % (AUTO) 45.4 % (40.0-70.0); PLATELET COUNT (AUTO) 259 K/uL (150-450); RED BLOOD CELL COUNT(AUTO) 5.02 MIL/uL (4.00-5.20); RED CELL DISTRIBUTION WIDTH 15.2 % (11.5-14.5)
[2022-05-25 11:27] LABS: ANION GAP 4 mmol/L (8-16); CALCIUM, TOTAL 8.6 mg/dL (8.8-10.5); CARBON DIOXIDE 29 mmol/L (22-29); CHLORIDE 104 mmol/L (98-107); CREATININE 0.57 mg/dL (0.60-1.30); GLOMERULAR FILTR. RATE CALC > 60 mL/min (>60); GLUCOSE,RANDOM 130 mg/dL (70-110); POTASSIUM 3.9 mmol/L (3.5-5.1); SODIUM SERUM 137 mmol/L (136-145); UREA NITROGEN, BLOOD 5 mg/dL (7-18)
[2022-05-25 11:38] LABS: LITHIUM < 0.20 mmol/L (0.60-1.20)
[2022-05-25 11:40] LABS: COVID AG,FIA SOURCE NASOPHARYNGEAL
[2022-05-25 11:48] LABS: ALANINE AMINOTRANSFERASE 27 U/L (12-78); ALBUMIN 3.1 g/dL (3.4-5.0); ALKALINE PHOSPHATASE 45 U/L (46-116); ASPARTATE AMINOTRANSFERASE 18 U/L (15-37); BILIRUBIN,TOTAL 0.3 mg/dL (0.1-1.0); HCG,QUANTITATIVE < 1 mIU/mL (0-6); THYROID STIMULATING HORMONE 0.78 uIU/mL (0.36-3.74); TOTAL PROTEIN, SERUM 6.1 g/dL (6.4-8.2)
[2022-05-25 13:54] LABS: AMPHET/METH SCREEN,URINE NEGATIVE (NEGATIVE); BARBITURATE SCREEN, URINE NEGATIVE (NEGATIVE); BENZODIAZEPINES SCREEN,URINE NEGATIVE (NEGATIVE); CANNABINOID SCREEN,URINE POSITIVE (NEGATIVE); COCAINE SCREEN,URINE NEGATIVE (NEGATIVE); METHADONE SCREEN, URINE NEGATIVE (NEGATIVE); OPIATE SCREEN,URINE NEGATIVE (NEGATIVE)
[2022-05-25 13:55] LABS: PHENCYCLIDINE SCREEN,URINE NEGATIVE (NEGATIVE)
[2022-05-25 14:39] VITALS: BP 127/62
== END 2022-05-25 15:03 | disposition home or self-care (01) ==
LOC: EMS 09:55
DX: G40.909 Epilepsy, unspecified, not intractable, without status epilepticus (principal); F25.9 Schizoaffective disorder, unspecified; F41.9 Anxiety disorder, unspecified; J45.909 Unspecified asthma, uncomplicated; F17.210 Nicotine dependence, cigarettes, uncomplicated; F31.9 Bipolar disorder, unspecified; E11.9 Type 2 diabetes mellitus without complications; E78.00 Pure hypercholesterolemia, unspecified; I10 Essential (primary) hypertension; Z20.822 Contact with and (suspected) exposure to COVID-19
CPT/HCPCS: 99285; 87426; 80053; 80178; 84443; 84702; 85025; 36415; 80307; G0480